=== PATIENT | female | born 1935 | race Caucasian/White ===

== ENCOUNTER 2017-12-24 12:54 | Emergency (ER) | payer MEDICARE ==
[2017-12-24 13:06] VITALS: BP 157/103
--- NOTE | 2017-12-24 14:22 | XRAY Preliminary Report ---
Exam: XR CHEST 2 VIEW X-RAY IMPRESSION: Chronic lung disease. [facility] SITE ID: [id number]
--- NOTE | 2017-12-24 14:44 | XRAY Report ---
EXAM: CHEST RADIOGRAPHY EXAM DATE: 12/24/2017 02:03 PM. CLINICAL HISTORY: Shortness of breath with exertion. Long smoking history. COMPARISON: 06/04/2009. TECHNIQUE: 2 views. FINDINGS: Lungs/Pleura: No focal opacities evident. No pleural effusion. No pneumothorax. Overexpanded. Bibasil ar fibrosis. Mediastinum: Heart and mediastinal contours are unremarkable. Other: Mild kyphoscoliosis. IMPRESSION: Chronic lung disease. [facility] Referring Provider Line: [phone] SITE ID: [id number]
[2017-12-24] MEDS ORDERED: NEOMYCIN/POLYMYX/HC OTIC DROPS EACHEAR STA (15:01)
[2017-12-24] MEDS ORDERED: AMOXICILLIN 250 MG CAPSULE PO STA (15:01)
[2017-12-24] MEDS ORDERED: predniSONE 20 MG TABLET PO STA (15:01)
--- NOTE | 2017-12-24 15:04 | ED Physician Documentation ---
History of Present Illness - Stated complaint Stated Complaint: SOA - Chief complaint Chief Complaint: General - History obtained from History obtained from: Patient - History of Present Illness Timing: Other (She has been sick for about a month that started with cough, cold , runny nose. She continues to have a nonproductive cough and shortness of breath especially at night. There is no associated pedal edema or chest pain. She still has some sinus congestion but no fevers. She is a heavy smoker and does not take any meds for COPD.) Review of Systems Constitutional: reports: Fatigue. denies: Fever, Chills, Myalgias Nose: reports: Rhinorrhea / runny nose, Congestion Throat: denies: Sore throat Cardiac: denies: Chest pain / pressure, Palpitations Respiratory: reports: Dyspnea, Cough GI: denies: Abdominal Pain PD PAST MEDICAL HISTORY - Past Medical History Cardiovascular: Hypertension - Past Surgical History Past Surgical History: Yes General: Bowel surgery - Present Medications Home Medications: Ambulatory Orders Medication Instructions Recorded Confirmed Penicillin V Potassium 500 mg PO Q6HR 10 Days tablet 03/17/16 Albuterol Sulfate [Proventil Hfa 1 - 2 puffs IH Q4H PRN #1 12/24/17 Inhaler] [email or web address] Amoxicillin 500 mg PO TID #30 capsule 12/24/17 Neomycin/Polymyx/Hc Otic Drops 4 drops OT TID #1 bottle 12/24/17 [Cortisporin Ear Susp] predniSONE [Deltasone] 40 mg PO DAILY 5 Days #10 tablet 12/24/17 - Allergies Allergies/Adverse Reactions: Allergies Allergy/AdvReac Type Severity Reaction Status Date / Time No Known Drug Allergies Allergy Verified 03/17/16 17:12 - Social History Does the pt smoke?: Yes Smoking Status: Current every day smoker PD ED PE NORMAL - Vitals Vital signs reviewed: Yes - General General: Alert and oriented X 3, No acute distress - HEENT HEENT: PERRL, EOMI, Other (She has bilateral otitis externa, right much worse than left but nonocclusive.) - Neck Neck: Supple, no meningeal sign, No bony TTP - Cardiac Cardiac: RRR, No murmur - Respiratory Respiratory: No respiratory distress, Other (Quite diminished throughout without focal findings) - Abdomen Abdomen: Normal bowel sounds, Soft, Non tender - Extremities Extremities: No edema, No calf tenderness / cord - Neuro Neuro: Alert and oriented X 3, Normal speech Results - Vitals Vitals: Vital Signs - 24 hr 12/24/17 12:57 Temperature 36.8 C Heart Rate 112 H Respiratory 22 Rate Blood Pressure 157/103 H O2 Saturation 95 Oxygen O2 Source Room air - Rads (name of study) 2v chest Radiology: EMP read contemporaneously (Chronic lung disease without focal findings.) Departure - Departure Disposition: Home, Self Care Clinical Impression: COPD exacerbation Otitis externa Qualifiers: Otitis externa type: unspecified type Chronicity: acute Laterality: bilateral Qualified Code(s): H60.503 - Unspecified acute noninfective otitis externa, bilateral Condition: Good Record reviewed to determine appropriate education?: Yes Instructions: ED COPD Flare, ED Otitis Externa Prescriptions: Albuterol Sulfate [Proventil Hfa Inhaler] 1 - 2 puffs IH Q4H PRN #1 [email or web address] PRN Reason: Cough Amoxicillin 500 mg PO TID #30 capsule Neomycin/Polymyx/Hc Otic Drops [Cortisporin Ear Susp] 4 drops OT TID #1 bottle predniSONE [Deltasone] 40 mg PO DAILY 5 Days #10 tablet Comments: Call your doctor to arrange a follow-up appointment, make the next available appointment. In the interim, return anytime if worse or if new symptoms develop. Your blood pressure was elevated today on check into the emergency department. This does not mean that you have hypertension, it is a common phenomenon to come to the emergency department and have elevated blood pressure. I recommend that you see your primary care physician within the week to have it rechecked when you are feeling better.
[2017-12-24] MEDS ORDERED: ALBUTEROL NEB 2.5 MG/3 ML INH STA (15:07)
== END 2017-12-24 16:26 | disposition home or self-care (01) ==
LOC: ED 12:54
DX: J44.1 Chronic obstructive pulmonary disease with (acute) exacerbation (principal); H60.503 Unspecified acute noninfective otitis externa, bilateral; I10 Essential (primary) hypertension; F17.200 Nicotine dependence, unspecified, uncomplicated
CPT/HCPCS: 71046; 94640; 94664; 99283; A9270; J7512

== ENCOUNTER 2019-02-17 13:33 | Outpatient (CLI) | payer MEDICARE | END 2019-02-17 13:34 | disposition critical access hospital (66) | LOC: EMS 13:33 | PROVIDERS: ATTEND Surgery | DX: M25.572 Pain in left ankle and joints of left foot (principal); W19.XXXA Unspecified fall, initial encounter; Y92.002 Bathroom of unspecified non-institutional (private) residence as the place of occurrence of the external cause | CPT/HCPCS: A0425; A0429 ==

== ENCOUNTER 2019-02-17 13:47 | Inpatient (IN) | payer MEDICARE ==
--- NOTE | 2019-02-17 14:00 | ED Physician Documentation ---
PD HPI FOCAL NEURO - Stated complaint Stated Complaint: GLF - Chief complaint Chief Complaint: Neuro - History obtained from History obtained from: Patient, EMS, Caregiver - History of Present Illness Timing - onset: Other (83-year-old woman who lives alone with visiting caregiver. She was feeling poorly yesterday but she is really unable to elaborate on that. This morning at 5 AM reportedly fell in her bathroom. Its unclear if it was a syncopal episode, she says she does not think so. She injured her arm and her ankle on the left. She may have hit her head. She is a very vague historian. It is noted that she is weak on the left side. Is unclear when this started. She has no history of stroke but does smoke heavily.) Review of Systems Ten Systems: 10 systems reviewed and negative Constitutional: denies: Fever, Chills Cardiac: denies: Chest pain / pressure, Palpitations Respiratory: denies: Dyspnea, Cough PD PAST MEDICAL HISTORY - Past Medical History Cardiovascular: Hypertension - Past Surgical History Past Surgical History: Yes General: Bowel surgery - Present Medications Home Medications: Ambulatory Orders Medication Instructions Recorded Confirmed Penicillin V Potassium 500 mg PO Q6HR 10 Days tablet 03/17/16 Albuterol Sulfate [Proventil Hfa 1 - 2 puffs IH Q4H PRN #1 12/24/17 Inhaler] [email or web address] Amoxicillin 500 mg PO TID #30 capsule 12/24/17 Neomycin/Polymyx/Hc Otic Drops 4 drops OT TID #1 bottle 12/24/17 [Cortisporin Ear Susp] predniSONE [Deltasone] 40 mg PO DAILY 5 Days #10 tablet 12/24/17 - Allergies Allergies/Adverse Reactions: Allergies Allergy/AdvReac Type Severity Reaction Status Date / Time No Known Drug Allergies Allergy Verified 02/17/19 13:55 - Social History Does the pt smoke?: Yes Smoking Status: Current every day smoker Does the pt have substance abuse?: No PD ED PE NORMAL - Vitals Vital signs reviewed: Yes - General General: No acute distress, Other (She is alert and oriented to person and place but not time and a poor historian for events.) - HEENT HEENT: PERRL, EOMI - Neck Neck: Supple, no meningeal sign, No bony TTP - Cardiac Cardiac: RRR, No murmur - Respiratory Respiratory: No respiratory distress, Clear bilaterally - Abdomen Abdomen: Soft, Non tender - Extremities Extremities: Other (Mild tenderness of the left clavicle. No clear tenderness of the left arm or leg but given her neurologic examination it is questionable if her sensation is completely intact there.) - Neuro Neuro: Normal speech Eye Opening: Spontaneous Motor: Obeys Commands Verbal: Confused GCS Score: 14 NIHSS - Time Time: 13:55 - Level of Consciousness Level of consciousness: (0) Alert, Keenly responsive LOC Questions: (1) Answers one Q correctly (Initially she says it October or November but then settles on January but does not know the year.) LOC Commands: (0) Performs both correctly - Gaze Best Gaze: (0) Normal - Visual Visual: (0) No loss - Facial Palsy Facial Palsy: (2) Partial paralysis (Left face) - Motor Arms (both separate) Motor Arm (right): (0) No drift Motor Arm (left): (2) Some effort against gravity - Motor Legs (both separate) Motor Leg (right): (0) No drift Motor Leg (left): (2) Some effort against gravity - Limb Ataxia Limb Ataxia: (0) Absent - Sensory Sensory: (0) Normal - Best Language Best Language: (0) No aphasia - Dysarthria Dysarthria: (1) [id number] dysarthria - Extinction and Inattention (formally neg Extinction and inattention: (0) No abnormality - Total Score/Results Total Score/Result: 8 Results - Vitals Vitals: Vital Signs - 24 hr 02/17/19 02/17/19 13:52 16:12 Temperature 36.2 C L Heart Rate 91 89 Respiratory 19 18 Rate Blood Pressure 183/67 H 105/87 H O2 Saturation 96 96 Oxygen O2 Source Room air - EKG (time done) 1410 Rate: Rate (enter#) (79) Rhythm: Other (Some artifact, but looks like sinus rhythm with short SC interval, some PACs and diffusely flat T waves. No priors available for comparison.) - Labs Labs: Laboratory Tests 02/17/19 02/17/19 02/17/19 14:00 14:00 14:00 WBC 12.5 H RBC 4.66 Hgb 13.6 Hct 40.5 MCV 86.9 MCH 29.2 MCHC 33.6 RDW 13.5 Plt Count 312 MPV 10.7 Neut # (Auto) 9.4 H Lymph # (Auto) 2.1 Crook # (Auto) 0.9 Eos # (Auto) 0.0 Baso # (Auto) 0.1 Absolute Nucleated RBC 0.00 Nucleated RBC % 0.0 PT 12.3 INR 1.1 Sodium 141 Potassium 3.9 Chloride 100 L Carbon Dioxide 24 Anion Gap 17.0 H BUN 18 Creatinine 0.6 Estimated GFR (MDRD) 95 Glucose 76 Calcium 10.0 Total Bilirubin 1.3 H AST 29 ALT 13 Alkaline Phosphatase 83 Total Protein 7.4 Albumin 4.4 Globulin 3.0 Albumin/Globulin Ratio 1.5 Lipase 20 L - Rads (name of study) CTA Head/neck Radiology: EMP read contemporaneously (Old right basal ganglia lacunar infarct and age-related disease. She has no intracranial stenosis but she has multiple areas of carotid stenosis including severe right proximal cervical atherosclerosis.) X-rays of the left clavicle, humerus, forearm, ankle, and hip Radiology: EMP read contemporaneously (All negative) PD MEDICAL DECISION MAKING - ED course ED course: 83-year-old woman presents by ambulance. She was feeling poorly yesterday and fell this morning. Her examination is concerning for a stroke with left-sided findings, the acuity of this is unclear but probably started yesterday, as such TPA is not offered. Case was discussed after CT angiography with Dr. Denton at [facility], the carotid does need to be addressed by vascular surgeon but not acutely since she has completed her stroke apparently. She recommends starting aspirin and otherwise routine stroke care. She can follow-up with vascular surgery in a delayed fashion. Spoke with Dr. Retana for admission at 4:32 PM. Of note the patient asked me to call her daughter unfortunately she did not know the phone number and it was not listed. Departure - Departure Disposition: 66 [facility] DC/Xfer Clinical Impression: Carotid stenosis, right, Multiple contusions Cerebrovascular accident (CVA) Qualifiers: CVA mechanism: unspecified Qualified Code(s): I63.9 - Cerebral infarction, unspecified Condition: Serious
[2019-02-17 14:08] LABS: BASOPHILS # (AUTO) 0.1 10^3/uL (0.0-0.1); BASOPHILS % (AUTO) 0.5 %; EOSINOPHILS % (AUTO) 0.1 %; HGB - HEMOGLOBIN 13.6 g/dL (12.0-16.0); LYMPHOCYTES # (AUTO) 2.1 10^3/uL (1.5-3.5); LYMPHOCYTES % (AUTO) 16.6 %; MEAN CORPUSCULAR HEMOGLOBIN 29.2 pg (27.0-31.0); MEAN CORPUSCULAR HGB CONC 33.6 g/dL (32.0-36.0); MEAN CORPUSCULAR VOLUME 86.9 fL (81.0-99.0); MEAN PLATELET VOLUME 10.7 fL (7.9-10.8); MONOCYTES # (AUTO) 0.9 10^3/uL (0.0-1.0); MONOCYTES % (AUTO) 7.2 %; NEUTROPHILS # (AUTO) 9.4 10^3/uL (1.5-6.6); NEUTROPHILS % (AUTO) 75.2 %; PLT - PLATELET COUNT 312 10^3/uL (130-450); RED BLOOD COUNT 4.66 10^6/uL (4.20-5.40); RED CELL DISTRIBUTION WIDTH 13.5 % (12.0-15.0); WHITE BLOOD COUNT 12.5 x10^3/uL (4.8-10.8)
[2019-02-17] MEDS ORDERED: IOVERSOL 320 100 ML VIAL IVP ONE (14:10)
[2019-02-17 14:15] LABS: INR 1.1 (0.8-1.2); PT - PROTHROMBIN TIME 12.3 secs (9.9-12.6)
[2019-02-17 14:24] LABS: ALBUMIN 4.4 g/dL (3.2-5.5); ALBUMIN/GLOBULIN RATIO 1.5 (1.0-2.2); BILIRUBIN,TOTAL 1.3 mg/dL (0.2-1.0); CREATININE 0.6 mg/dL (0.4-1.0); TOTAL PROTEIN 7.4 g/dL (6.7-8.2)
--- NOTE | 2019-02-17 15:35 | XRAY Report ---
Reason: arm inj Procedure Date: 02/17/2019 Accession Number: [id number] / [id number] Procedure: XR - Humerus LT CPT Code: FULL RESULT: EXAM: LEFT HUMERUS RADIOGRAPHY EXAM DATE: 02/17/2019 03:11 PM. CLINICAL HISTORY: Left arm injury. Left humerus pain after multiple falls over 2 days. COMPARISON: None. TECHNIQUE: 2 views. FINDINGS: Bones: Normal. No fractures or bone lesions. Joints: Normal. No effusions or subluxations in the visualized shoulder or elbow joints. Soft Tissues: Normal. No soft tissue swelling. IMPRESSION: Normal humerus radiography. [facility]
--- NOTE | 2019-02-17 15:36 | XRAY Report ---
Reason: shoulder inj Procedure Date: 02/17/2019 Accession Number: [id number] / [id number] Procedure: XR - Clavicle LT CPT Code: FULL RESULT: EXAM: LEFT CLAVICLE RADIOGRAPHY EXAM DATE: 02/17/2019 03:12 PM. CLINICAL HISTORY: Left shoulder injury. Left clavicle pain after multiple falls over 2 days. COMPARISON: CHEST 2 VIEW 12/24/2017 1:53 PM. TECHNIQUE: 2 views. FINDINGS: Bones: Normal. No fracture or bone lesion. Joints: The acromioclavicular and sternoclavicular joints are normally aligned. No subluxation. Cannot exclude mild left glenohumeral joint space narrowing from degenerative change. Soft Tissues: Normal. No soft tissue swelling. IMPRESSION: No fracture evident. [facility]
--- NOTE | 2019-02-17 15:38 | XRAY Report ---
Reason: arm inj Procedure Date: 02/17/2019 Accession Number: [id number] / [id number] Procedure: XR - Forearm LT CPT Code: FULL RESULT: EXAM: LEFT FOREARM RADIOGRAPHY EXAM DATE: 02/17/2019 03:12 PM. CLINICAL HISTORY: Arm injury. Left forearm pain after multiple falls over 2 days. COMPARISON: None. TECHNIQUE: 2 views. FINDINGS: Bones: Normal. No fractures or bone lesions. Joints: Potential ulnar positive variance. Wrist evaluation can be limited by standard forearm film positioning. Elbow joint is grossly unremarkable. Soft Tissues: Normal. No soft tissue swelling. IMPRESSION: No fracture evident. [facility]
--- NOTE | 2019-02-17 15:40 | XRAY Report ---
Reason: ankle inj fall Procedure Date: 02/17/2019 Accession Number: [id number] / [id number] Procedure: XR - Ankle 3 View LT CPT Code: FULL RESULT: EXAM: LEFT ANKLE RADIOGRAPHY EXAM DATE: 02/17/2019 03:11 PM. CLINICAL HISTORY: Left ankle pain after multiple falls over 2 days. Ankle injury. COMPARISON: None. TECHNIQUE: 3 views. A small portion of posterior calcaneus and adjacent soft tissues were coned off of the lateral film. FINDINGS: Bones: Normal. No fractures or bone lesions. Joints: Normal. No effusion. No subluxations. The ankle mortise is normally aligned. Soft Tissues: Calcaneal enthesophytes. IMPRESSION: 1. No fracture evident. A small portion of posterior calcaneus and adjacent soft tissues were coned off of crosstable lateral film. Consider repeating this view if clinically warranted. [facility]
--- NOTE | 2019-02-17 15:43 | XRAY Report ---
Reason: hip inj Procedure Date: 02/17/2019 Accession Number: [id number] / [id number] Procedure: XR - Hip w/Pelvis 2-3V LT CPT Code: FULL RESULT: EXAM: LEFT HIP RADIOGRAPHY EXAM DATE: 02/17/2019 03:11 PM. CLINICAL HISTORY: Left hip pain after multiple falls over 2 days. Hip injury. COMPARISON: Pelvic CT 02/22/2012. TECHNIQUE: 2 views. AP and crosstable lateral views. FINDINGS: Bones: Normal. No fractures or bone lesion. Joints: Normal. No dislocation. The hip joint space is preserved. Soft Tissues: Calcified fibroid within medial left hemipelvis. IMPRESSION: 1. No radiographic evidence for left hip fracture. No dislocation. If there is persistent clinical concern, consider MRI. [facility]
--- NOTE | 2019-02-17 16:02 | CT Report ---
Reason: L sided facial droop, L neck pain Procedure Date: 02/17/2019 Accession Number: [id number] / [id number] Procedure: CT - ANGIO NECK W CPT Code: FULL RESULT: EXAM: CT ANGIOGRAM HEAD AND NECK. CT SCAN HEAD WITHOUT AND WITH CONTRAST. EXAM DATE: 02/17/2019 03:18 PM. CLINICAL HISTORY: 83-year-old female. L sided facial droop. COMPARISON: NECK ANGIO 02/17/2019 3:10 PM. TECHNIQUE: Routine axial helical CTA imaging was performed from the aortic arch through the [place]. Routine axial CT imaging of the head was performed prior to and following contrast administration. Reconstructions: Routine multiplanar 3D MIP reconstructions. IV contrast: 80 cc Optiray 320. NASCET Criteria are used for stenosis measurements. In accordance with CT protocol optimization, one or more of the following dose reduction techniques were utilized for this exam: automated exposure control, adjustment of mA and/or KV based on patient size, or use of iterative reconstructive technique. FINDINGS: CT SCAN HEAD: Parenchyma: No intraparenchymal hemorrhage. No evidence of mass, midline shift, or CT findings of acute infarction. Carcamo-white differentiation is distinct. Scattered periventricular and deep white matter hypodensities, nonspecific, favored to represent sequela of chronic microangiopathy. Chronic lacunar infarct right basal ganglia. Extra-axial Spaces: Normal for age. No subdural or epidural collections identified. Ventricles: Normal in size and position. Sinuses and Orbits: Status post bilateral lens replacement surgery. Imaged paranasal sinuses, orbits, and mastoids show no significant abnormality. Bones: No evidence of fracture or calvarial defect. CT ANGIOGRAM EXTRACRANIAL CIRCULATION: Mild atherosclerosis aortic arch, no hemodynamically significant narrowing. Great vessels are patent and unremarkable. Right Carotid: Moderate to severe atherosclerosis right carotid bifurcation and proximal cervical right ICA, maximal narrowing of 70-75%, severe by NASCET criteria . The common carotid, internal carotid, and external carotid arteries are patent. No evidence of acute dissection. Approximately 50-60% narrowing origin of the right external carotid artery. Left Carotid: Moderate to severe atherosclerosis left carotid bifurcation and proximal cervical left ICA, maximal narrowing 70-75 %, severe by NASCET criteria. The common carotid, internal carotid, and external carotid arteries are patent. No evidence of acute dissection. Approximately 50-60% narrowing origin of the left external carotid artery Vertebrals: Atherosclerosis origin of the right vertebral artery, maximal narrowing 30-40%. Atherosclerosis with approximately 40-50% narrowing origin of the left vertebral artery. The vertebrobasilar system is otherwise unremarkable. CT ANGIOGRAM INTRACRANIAL CIRCULATION: RIGHT: Internal Carotid artery: Moderate atherosclerosis right carotid siphon, maximal narrowing 60-70%. Anterior Cerebral Artery: Patent without significant stenosis, aneurysm, or vascular malformation. Middle Cerebral Artery: Patent without significant stenosis, aneurysm, or vascular malformation. Posterior Cerebral Artery: Patent without significant stenosis, aneurysm, or vascular malformation. Posterior Communicating Artery: Patent without significant stenosis, aneurysm, or vascular malformation. LEFT: Internal Carotid artery: Moderate atherosclerosis left carotid siphon, maximal narrowing 60-70%. Anterior Cerebral Artery: Patent without significant stenosis, aneurysm, or vascular malformation. Middle Cerebral Artery: Patent without significant stenosis, aneurysm, or vascular malformation. Posterior Cerebral Artery: Patent without significant stenosis, aneurysm, or vascular malformation. 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 CENTRAL: Anterior Communicating Artery: Patent. No aneurysm. The dural venous sinuses are patent. Other: Mild to moderate multilevel degenerative spondylosis. No acute fracture or malalignment. The visualized lung apices are clear. Sialoliths within the submandibular glands bilaterally. The visualized soft tissues demonstrate no acute abnormality. IMPRESSION: CT HEAD: 1. No evidence of acute intracranial abnormality on the noncontrast CT head. Specifically, no evidence of acute infarct, intracranial hemorrhage, mass effect, midline shift, or hydrocephalus. 2. No abnormal enhancement on the postcontrast CT head. 3. Scattered periventricular and deep white matter hypodensities, nonspecific, favored to represent sequela of chronic microangiopathy. Chronic lacunar infarct right basal ganglia. CTA NECK: 1. Moderate to severe atherosclerosis right carotid bifurcation and proximal cervical right ICA, maximal narrowing of 70-75%, severe by NASCET criteria . 2. Approximately 50-60% narrowing origin of the right external carotid artery. 3. Moderate to severe atherosclerosis left carotid bifurcation and proximal cervical left ICA, maximal narrowing 70-75 %, severe by NASCET criteria. 4. Approximately 50-60% narrowing origin of the left external carotid artery 5. Atherosclerosis origin of the right vertebral artery, maximal narrowing 30-40%. 6. Atherosclerosis with approximately 40-50% narrowing origin of the left vertebral artery. CTA HEAD: 1. Moderate atherosclerosis right carotid siphon, maximal narrowing 60-70%. 2. Moderate atherosclerosis left carotid siphon, maximal narrowing 60-70%. [facility]
[2019-02-17] MEDS ORDERED: ASPIRIN CHEW 81 MG TABLET PO STA (16:14)
[2019-02-17] MEDS ORDERED: ACETAMINOPHEN 325 MG TABLET PO PRN (16:41)
[2019-02-17] MEDS ORDERED: ONDANSETRON ODT 4 MG TABLET TL PRN (16:41)
[2019-02-17] MEDS ORDERED: ALBUTEROL NEB 2.5 MG/3 ML INH PRN (16:44)
--- NOTE | 2019-02-17 17:04 | HISTORY & PHYSICAL EXAMINATION ---
Chief Complaint - Chief Complaint Chief Complaint: unwitnessed fall heard by care provider at 5am History of Present Illness - Admitted From Admitted From:: home - History Obtained From Records Reviewed: from ED. - History of Present Illness HPI Comment/Other: 83 yo female who lives alone but has a visiting farm or ranch animal caretaker BJ who is a friend of her daughters only as of early this week. Dietetic Assistant heard patient fall in bathroom ~ 5am this morning and found her on the floor. (Patient reports she fell twice, but cant elaborate when the other time was; BJ not present. ) Rosi johnson does not recall details, but sustained injuries to L arm andL ankle. On evaluation in the ED L sided weakness was noted. On neuro exam rin the ED in addition to the L sided weakness she was alert, with normal speech noted on iniitail GCS scoring in ED, but dysarthira mild to mod noted on the exam. , although she was not entirely oriented to time/date/. There was a facial drrop, no pronator drift, 3/5 weakness on the LUE and LLE, no asphasia, . Imaging in the ED (initial so far as CT) showed old lacunar infarcts but no acute stroke (at this time). MRI not yet done. EKG ; NSR wit short Pr, PACs and diffusely flat T waves with no comparison EKG available RE stroke risk factors, Patient is heavy smoker + HTN, neg DM , no note of prior hyperlipidemia; not on statin VS on presentaton afeb, HR 91, 183/67 RR 19 96-97% RA Dr Gale spoke with Dr Denton at [employer] stroke; and as the timing of the acute event is very unclear; was not TPA candidate. CTA of head and neck showed significant carotid stenosis (although no intracranial stenosis) ; most significantly severe R proximal cervical atheroscerosis. Dr Denton (per Gus note) indicated carotid does need to be addressed w/ vascular surgery but NOT acutely as stroke is complete . Advised starting ASA and routien post stroke care, with vascular surgeon follow up. Re fall at home; Xrays of left clavicle, humerus, forearm, ankle and hip all negative for acute orthopedic injury History - Past Medical History Cardiovascular: reports: Hypertension (patient denies on H/P and denies being on any meds) Respiratory: reports: Other (once had an inhaler, no dx of COPD, no bronchodilator) Neuro: reports: None Endocrine/Autoimmune: reports: None GI: reports: Other (colostomy; unclear what pathology was resulting in this) [employer] SCIENCES DEAN: reports: Other (5 children) : reports: None HEENT: reports: None Psych: reports: None Musculoskeletal: reports: None MRSA Hx?: No - Past Surgical History General: reports: Bowel surgery - Family & Social History Family History Comment/Other: Has 3 daughters and 2 sons, Daughter Lea parker in [facility], Charissa (also daughter) From [place] originally Living arrangement: At home Living Situation: With caregiver(s) Social History Notes: llives alone, BJ is daughers friend, helping her since early this week (patient vague on when she is there - Substance History Use: Uses substance without health or social issues: Tobacco (1 pack last 2-3 days now (vague on this ) since early ), Alcohol (no ETOH) Meds/Allgy - Home Medications Home Medications: Ambulatory Orders Medication Instructions Recorded Confirmed Albuterol Sulfate [Proventil Hfa 1 - 2 puffs IH Q4H PRN #1 12/24/17 02/18/19 Inhaler] hfa.aer.[email or web address] - Allergies Allergies/Adverse Reactions: Allergies Allergy/AdvReac Type Severity Reaction Status Date / Time No Known Drug Allergies Allergy Verified 02/17/19 13:55 Review of Systems - Constitutional Constitutional: denies: Fatigue, Poor appetite, Weight gain, Weight loss - Eyes Eyes: denies: Field loss, Vision loss, Dipolpia - Ears, Nose & Throat Ears, Nose & Throat: reports: Other (edentulous). denies: Hearing loss, Hearing aids - Cardiovascular Cariovascular: denies: Irregular heart rate - Respiratory Respiratory: reports: Other (smokes still 1 pack every 2-3 days). denies: Cough, Sputum production, Wheezing - Gastrointestinal Gastrointestinal: reports: Other (has LLQ colostomy, doesnt recall last stool, ? in lst 2-3 days per her). denies: Abdominal pain, Abdominal distention, Constipation, Nausea, Vomiting - Genitourinary Genitourinary: denies: Dysuria, Frequency, Urgency, Flank pain - Neurological Neurological: reports: Other (no deficits prior to todays presentation). denies: General weakness Prior Level of Functionality: Patient was up and about in her house Denied using assistive device when home Exam - Vital Signs Reviewed Vital Signs: Yes Vital Signs: Vital Signs x48h Temp Pulse Resp BP Pulse Ox 02/17/19 16:12 89 18 105/87 H 96 02/17/19 13:52 36.2 C L 91 19 183/67 H 96 - Physical Exam General Appearance: positive: Other (Withered, wrinkled elderly female lying in bed in no acute distress, but during hisotry started coughing not handling secretions, needed to be positioned upright, visible L facial droop, mildly dysarthric but answers questions mostly easily understood (not very detail oriented in response to questions re: history) Oriented) Eyes Bilateral: positive: PERRL, EOMI (no clear field deficit on left on exam when peripheral vision checked senile arcus bilatrally) ENT: positive: Other (drooling, HOB elevated while I was in room, not handling secretions well,edentulous) Neck: positive: Nml inspection, No JVD, Other (tongue deviates slightly on exam). negative: Carotid bruit Respiratory: positive: Chest non-tender. negative: No respiratory distress, Breath sounds nml (Unlabored resps at rest, Distant breath sounds in bases, but moves air, no rhonchi or crackles currently. Early into hx interview started coughing, difficulty handling secretions ,better w/ HOB elevated) Cardiovascular: positive: Regular rate & rhythm, No murmur. negative: Systolic murmur Peripheral Pulses: positive: 1+ Abdomen: positive: Nml bowel sounds (but hypoactive, abd flat, nondistended, LLQ ostomy with no stool or air in beag). negative: No organomegaly Back: negative: CVA tenderness (R), CVA tenderness (L) Skin: positive: Warm, Dry, Other (very tanned skin, wrinkled face). negative: Diaphoresis, Pallor Extremities: positive: Other. negative: Pedal edema Neurologic/Psychiatric: positive: Oriented x3, Mood/affect nml, Other (mildly dysarthric but making sense, mild word slurring, drooling, not handling secretions, CN 2-12 intact, does not clearly have a field deficit on left, will turn head to look left, Flaccid LLE, Has slight shoulder shrug on left, sl proximal LLE strength,otherwise marked left hemiplegia) Conclusion/Plan - Problem List (1) Stroke Conclusion/Plan: gerardo completed acute stroke with severe carotid stenosis as cause in 83 yo female with stroke risks of Htn and tobacco use CT does not yet show stroke (< 24 hrs) -MRI pending (will defer this evening given her difficulty handling secretions/wont tolerate flatlying) -Start ASA (got 325 in ED, 81 mg starting in am) -Add high intensity statin -lipid panel in am - Echo Pending Permissive HTN, IVF over night -As per neuro rec; will need outpatient vascular surgeon consult -PT/OT eval -Aspiration precautions -VTE prophylaxis ; lovenox (2) Carotid stenosis, bilateral Conclusion/Plan: will need outpatient vascular surgeon consult Start ASA as per neurology recs Imperitive that patient stop tobacco (3) DNR (do not resuscitate) Conclusion/Plan: Patient confirmed she would not want resuscitation in event of cardiopulmonary arrest (4) Tobacco use Conclusion/Plan: will add low dose nicoderm to avoid nicotine withdrawal PRN bronchodilator (5) Hypertension Conclusion/Plan: Reported as outpatient Dx, not on meds Permissive HTN next 48-96 hrs and even giving fluid this pm Will reeval - Lab Results Lab results reviewed: Yes Fish Bones: 02/18/19 04:40 02/18/19 04:40 Other Lab Results: Note; note completed on 02/18; 02/18 labs populated the lab section on 02/17; unremarkable BNP Na 131, K 3.9, Cl 100, C02 24, BUN 18 Cr 0.6 Glucose 76. 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 Chronic lacunar infarct R basal ganglia. CTA extracranial Mod to severe atherosclerosis r carotid 70-75%, No disection 50-60% narrowing R external carotid Left carotid; moderate to severe atherosclerosis left carotid bifurcation maximal narrowing 70-75% ; severe by NASCET criteria; ~ 40-50% narrowing of left vertebral artery CTA brain detail; Right Internal carotid; moderate atherosclerosis 60-70% Left internal carotid; moderate atherosclerosis 60-70%
[2019-02-17] MEDS ORDERED: IPRATROPIUM/ALBUTEROL 3 ML NEB INH PRN (17:31)
[2019-02-17] MEDS: SODIUM CHLORIDE FLUSH 0.9% 10 ML SYRINGE IVP SCH (18:36)
[2019-02-17] MEDS: SODIUM CHLORIDE 0.9% 1,000 ML IV SCH (18:36)
[2019-02-17] MEDS: ATORVASTATIN 40 MG TABLET PO SCH (22:12)
[2019-02-17] MEDS: NYSTATIN CREAM 15 GM TUBE TOP SCH (22:20)
[2019-02-18] MEDS: SODIUM CHLORIDE 0.9% 1,000 ML IV SCH (04:33)
[2019-02-18] MEDS: SODIUM CHLORIDE FLUSH 0.9% 10 ML SYRINGE IVP SCH ×3 (04:36→20:01)
[2019-02-18 05:04] LABS: HGB - HEMOGLOBIN 12.4 g/dL (12.0-16.0); MEAN CORPUSCULAR HEMOGLOBIN 29.5 pg (27.0-31.0); MEAN CORPUSCULAR HGB CONC 33.5 g/dL (32.0-36.0); MEAN CORPUSCULAR VOLUME 87.9 fL (81.0-99.0); MEAN PLATELET VOLUME 11.5 fL (7.9-10.8); RED BLOOD COUNT 4.21 10^6/uL (4.20-5.40); RED CELL DISTRIBUTION WIDTH 13.9 % (12.0-15.0); WHITE BLOOD COUNT 10.2 x10^3/uL (4.8-10.8)
[2019-02-18 05:53] LABS: BUN - BLOOD UREA NITROGEN 19 mg/dL (6-20); CALCIUM 9.1 mg/dL (8.5-10.3); CARBON DIOXIDE - CO2 21 mmol/L (21-32); CHLORIDE 106 mmol/L (101-111); CHOL/HDL RATIO 3.1 (<4.4); CHOLESTEROL 174 mg/dL; CREATININE 0.5 mg/dL (0.4-1.0); GFR - MDRD 118 (>89); HDL CHOLESTEROL 56 mg/dL; LDL CHOLESTEROL,CALCULATED 93 mg/dL; LDL/HDL RATIO 1.7 (<4.4); SODIUM 143 mmol/L (135-145); VLDL CHOLESTEROL 25 mg/dL
[2019-02-18 05:55] LABS: GLUCOSE 48 mg/dL (70-100)
[2019-02-18] MEDS ORDERED: DEXTROSE 50% ABBOJECT 25 GM/50 ML SYRINGE ONE (06:10)
[2019-02-18] MEDS ORDERED: DEXTROSE 50% ABBOJECT 25 GM/50 ML SYRINGE IVP ONE (06:20)
[2019-02-18] MEDS ORDERED: DEXTROSE 5% 1,000 ML IV SCH (07:00)
[2019-02-18] MEDS ORDERED: ASPIRIN EC 81 MG TABLET PO SCH (09:00)
[2019-02-18] MEDS: NICOTINE 7 MG PATCH TOP SCH (09:20)
[2019-02-18] MEDS: POLYETHYLENE GLYCOL 3350 17 GM PACKET PO SCH (09:21)
[2019-02-18] MEDS: ENOXAPARIN 40 MG/0.4 ML SYRINGE SUBQ SCH (09:21)
[2019-02-18] MEDS: NYSTATIN CREAM 15 GM TUBE TOP SCH ×2 (10:34→20:01)
[2019-02-18] MEDS: ASPIRIN 300 MG SUPP PR SCH (10:34)
[2019-02-18] MEDS ORDERED: DEXTROSE 5%-0.9% NACL 1,000 ML IV SCH (11:00)
--- NOTE | 2019-02-18 11:42 | PROVIDER PROGRESS NOTE ---
Subjective - Prog Note Date Prog Note Date: 02/18/19 Prog Note Time: 08:00 (seen early this morning) - Subjective Subjective: Spoke with Daughter parminder, and Paul, grandson POA Patient knows she had a stroke, denies, pain, denies SOB, very aware of drooling Patient aware of swallow eval, hopefully swallow will improve, aware PEG vs NG feed might be temporarily recommended Current Medications - Current Medications Current Medications: Active Medications Acetaminophen (Tylenol) 650 mg PO Q4HR PRN PRN Reason: Pain 1 to 4 Albuterol () 2.5 mg INH RTQ4H PRN PRN Reason: Wheezing Albuterol/Ipratropium (Duoneb) 3 ml INH Q4HR PRN PRN Reason: Wheezing Aspirin () 300 mg TX DAILY [facility] Last Admin: 02/18/19 10:34 Dose: 300 mg Atorvastatin Calcium (Lipitor) 40 mg PO QPM [facility] Last Admin: 02/17/19 22:12 Dose: Not Given Enoxaparin Sodium (Lovenox) 40 mg SUBQ DAILY [facility] Last Admin: 02/18/19 09:21 Dose: 40 mg Acetaminophen (Ofirmev) 100 mls @ 400 mls/hr IV Q6HR PRN PRN Reason: PAIN Dextrose/Sodium Chloride (D5ns) 1,000 mls @ 50 mls/hr IV .Q20H [facility] Last Admin: 02/18/19 10:26 Dose: 50 mls/hr Multi-Ingredient Ointment (Zinc Oxide) 1 applic TOP PRN PRN PRN Reason: Skin Care Nicotine (Nicoderm) 1 patch TOP DAILY [facility] Last Admin: 02/18/19 09:20 Dose: 1 patch Nystatin (Mycostatin Cream) 1 applic TOP BID [facility] Last Admin: 02/18/19 10:34 Dose: 1 applic Ondansetron HCl (Zofran Inj) 4 mg IVP Q6HR PRN PRN Reason: Nausea / Vomiting Ondansetron HCl (Zofran Odt) 4 mg TL Q6HR PRN PRN Reason: Nausea / Vomiting Polyethylene Glycol (Miralax) 17 gm PO DAILY [facility] Last Admin: 02/18/19 09:21 Dose: Not Given Sodium Chloride (Normal Saline Flush 0.9%) 10 ml IVP PRN PRN PRN Reason: NEEDED PER PROVIDER ORDERS Sodium Chloride (Normal Saline Flush 0.9%) 10 ml IVP 0100,0900,1700 ERIC Last Admin: 02/18/19 09:21 Dose: Not Given Objective - Vital Signs/Intake & Output Reviewed Vital Signs: Yes Vital Signs: BP 139/40, 167/61, 170/70 Vital Signs x48h Temp Pulse Pulse Resp BP BP Pulse Ox 02/18/19 11:36 76 170/70 H 02/18/19 07:51 36.4 C L 68 22 167/61 H 96 02/18/19 05:19 36.3 C L 68 16 93 02/18/19 03:57 36.3 C L 68 16 139/40 H 93 Intake & Output: Intake & Output 02/15/19 02/16/19 02/17/19 02/18/19 23:59 23:59 23:59 23:59 Intake Total 2000 Output Total 450 Balance 1550 - Objective General Appearance: positive: Other (Withered, wrinkled elderly female, in bed with HOB ~ 45 degrees, awake, alert, R preference (but can turn head left), fairly constant drooling of saliva, occas cough, 96% RA sa02 Of note when seen later / early evening the drooling was much less pronounced awake, alert, communicative) Eyes Bilateral: positive: PERRL, EOMI (bilateral senile arcus, do not appreciate a left field deficit) ENT: positive: Other (edentulous, drooling as above, not handling secretions) Neck: positive: Other (no carotid bruit appreciable). negative: Carotid bruit ((despite extensive carotid stenosis on imaging)) Respiratory: positive: Other (Unlabored resps, but occas cough, drooling as above, Sa02 on RA 96%, Iniitally on posterior exam had occas expiratory wheeze, but cleared during auscultation, somewhat distant breath sounds) Cardiovascular: positive: Regular rate & rhythm, No murmur (somewhat distant heart sounds) Abdomen: positive: No organomegaly, Nml bowel sounds (Active but hypoactive), No distention, Other (LLQ ostomy, no stool or air in bag currently). negative: Tenderness Skin: positive: Warm, Dry, Other (tanned skin, no breakdown) Extremities: positive: Nml appearance. negative: Pedal edema Neurologic/Psychiatric: positive: Oriented x3 (Not entirely clear on time,Responds to questions appropriately, slight dysarthria, hard of hearing knows she had stroke, L facial droop, CN 2-12 intact, EOMI, no nystagmus,pupils equal, dont appreciate left field deficit, Can puff cheeks, push tongue to left, + shoulder shrug, perhaps sl L tongue deviation; Strenght; very slight shoulder shrug on left, Flaccid LUE and LLE otherwise. Full strength right side Drooling as noted. Did not test rapid alternating movements) - Lab Results Fish Bones: 02/18/19 04:40 02/18/19 04:40 Other Labs: Lab Results x24hrs 02/18/19 02/18/19 02/17/19 Range/Units 04:40 04:40 14:00 WBC 10.2 (4.8-10.8) x10^3/uL RBC 4.21 (4.20-5.40) 10^6/uL Hgb 12.4 (12.0-16.0) g/dL Hct 37.0 (37.0-47.0) % MCV 87.9 (81.0-99.0) fL MCH 29.5 (27.0-31.0) pg MCHC 33.5 (32.0-36.0) g/dL RDW 13.9 (12.0-15.0) % Plt Count 273 (130-450) 10^3/uL MPV 11.5 H (7.9-10.8) fL Neut # (Auto) (1.5-6.6) 10^3/uL Lymph # (Auto) (1.5-3.5) 10^3/uL [place] # (Auto) (0.0-1.0) 10^3/uL Eos # (Auto) (0.0-0.7) 10^3/uL Baso # (Auto) (0.0-0.1) 10^3/uL Absolute Nucleated RBC x10^3/uL Nucleated RBC % /100WBC PT (9.9-12.6) secs INR (0.8-1.2) Sodium 143 141 (135-145) mmol/L Potassium 3.5 3.9 (3.5-5.0) mmol/L Chloride 106 100 L (101-111) mmol/L Carbon Dioxide 21 24 (21-32) mmol/L Anion Gap 16.0 H 17.0 H (6-13) BUN 19 18 (6-20) mg/dL Creatinine 0.5 0.6 (0.4-1.0) mg/dL Estimated GFR (MDRD) 118 95 (>89) Glucose 48 L* 76 (70-100) mg/dL Calcium 9.1 10.0 (8.5-10.3) mg/dL Total Bilirubin 1.3 H (0.2-1.0) mg/dL AST 29 (10-42) IU/L ALT 13 (10-60) IU/L Alkaline Phosphatase 83 (42-121) IU/L Total Protein 7.4 (6.7-8.2) g/dL Albumin 4.4 (3.2-5.5) g/dL Globulin 3.0 (2.1-4.2) g/dL Albumin/Globulin Ratio 1.5 (1.0-2.2) Triglycerides 124 ( - 149) mg/dL Cholesterol 174 ( - 199) mg/dL LDL Cholesterol, Calc 93 ( - 129) mg/dL VLDL Cholesterol 25 mg/dL HDL Cholesterol 56 L (60 - ) mg/dL LDL/HDL Ratio 1.7 (<4.4) Cholesterol/HDL Ratio 3.1 (<4.4) Lipase 20 L (22-51) U/L 02/17/19 02/17/19 Range/Units 14:00 14:00 WBC 12.5 H (4.8-10.8) x10^3/uL RBC 4.66 (4.20-5.40) 10^6/uL Hgb 13.6 (12.0-16.0) g/dL Hct 40.5 (37.0-47.0) % MCV 86.9 (81.0-99.0) fL MCH 29.2 (27.0-31.0) pg MCHC 33.6 (32.0-36.0) g/dL RDW 13.5 (12.0-15.0) % Plt Count 312 (130-450) 10^3/uL MPV 10.7 (7.9-10.8) fL Neut # (Auto) 9.4 H (1.5-6.6) 10^3/uL Lymph # (Auto) 2.1 (1.5-3.5) 10^3/uL [place] # (Auto) 0.9 (0.0-1.0) 10^3/uL Eos # (Auto) 0.0 (0.0-0.7) 10^3/uL Baso # (Auto) 0.1 (0.0-0.1) 10^3/uL Absolute Nucleated RBC 0.00 x10^3/uL Nucleated RBC % 0.0 /100WBC PT 12.3 (9.9-12.6) secs INR 1.1 (0.8-1.2) Sodium (135-145) mmol/L Potassium (3.5-5.0) mmol/L Chloride (101-111) mmol/L Carbon Dioxide (21-32) mmol/L Anion Gap (6-13) BUN (6-20) mg/dL Creatinine (0.4-1.0) mg/dL Estimated GFR (MDRD) (>89) Glucose (70-100) mg/dL Calcium (8.5-10.3) mg/dL Total Bilirubin (0.2-1.0) mg/dL AST (10-42) IU/L ALT (10-60) IU/L Alkaline Phosphatase (42-121) IU/L Total Protein (6.7-8.2) g/dL Albumin (3.2-5.5) g/dL Globulin (2.1-4.2) g/dL Albumin/Globulin Ratio (1.0-2.2) Triglycerides ( - 149) mg/dL Cholesterol ( - 199) mg/dL LDL Cholesterol, Calc ( - 129) mg/dL VLDL Cholesterol mg/dL HDL Cholesterol (60 - ) mg/dL LDL/HDL Ratio (<4.4) Cholesterol/HDL Ratio (<4.4) Lipase (22-51) U/L Assessment/Plan - Problem List (1) Stroke Impression: Conclusion/Plan: gerardo completed acute R hemisphere stroke (severe carotid stenosis likely cause) in 83 yo female with stroke risks of Htn and tobacco use Acute CT 02/17, no bleed, no stroke yet evident -MRI pending (deferring right now, given aspiration concern given flat lying for study -Start ASA (got 325 in ED, would have started PO 81 daily, but not safe for PO) -ASA per rectum qd for now until can give PO or per Dobhoff if placed -Added high intensity statin -lipid panel today; TG 124, CHol 174, LDL 93, HDL 56 - Echo: done today; read pending Permissive HTN next 48-96 hrs, IVF over night -As per neuro rec; will need outpatient vascular surgeon consult -PT/OT eval poor activity tolerance>>> PT recommending SNF -PT checking w/ OT re:L shoulder positioning, for sling -Aspiration precautions/ NPO til swallow eval >>>> See BRAID FOLDER eval below Still recommending NPO, patient, granddaquan Miller (POA) aware of possible need for enteric feed if does not improve (if she wants); - Nutrition consult for possible need for tube feeding / Xavier will note recommendations for diet if enteral feed needed I spoke withDaughter and grandson (POA) Abbreviated summary of BRAID FOLDER eval; Pt sitting upright in bed/fed during the assessment. Pt demonstrated missing natural dentition but was able to chew ice . Overall weakness noted with left sided facial droop. Pt demonstrated weak, slow, uncoordinated tongue movement and required max visual and verbal models to protrude and lateralize tongue during assessment. Pt participated in trials of ice chips via spoon. Pt demonstrated adequate lip closure around spoon and was able to chew and swallow given cues. Pt demonstrated delayed reflexive cough following second trial of ice chips. Pt continued to cough and demonstrated anterior spillage and spit secretions. Clinician assisted with suction. Pt cued to continue coughing. Recommended pt remain NPO due to diffulty managing secretions, overall facial weakness, fatigue, and poor reflexive cough following aspiration of ice chips via spoon -VTE prophylaxis ; lovenox (2) Carotid stenosis, bilateral Conclusion/Plan: severe >70% bilaterally will need outpatient vascular surgeon consult Started ASA as per neurology recs Imperitive that patient stop tobacco (3) DNR (do not resuscitate) Conclusion/Plan: Patient confirmed she would not want resuscitation in event of cardiopulmonary arrest (4) Tobacco use Conclusion/Plan: will add low dose nicoderm to avoid nicotine withdrawal PRN bronchodilator (5) Hypertension Conclusion/Plan: Reported as outpatient Dx, not on meds Permissive HTN next 48-96 hrs and even giving fluid this pm Will reeval 6) Hypoglycemia not on insulin, not symptomatic got 1 amp D50 this morning , glucose in 60's (not symptomatic) Per pharmacy [facility], low supply; Not on insulin, D10 not indicated Will increase rate of D5NS, and reeval (continue D5Ns at 75) (Once has swallow eval, will likely be moving towards NG feeds
[2019-02-18] MEDS ORDERED: DEXTROSE 25% ABBOJECT 2.5 GM/10 ML SYRINGE IVP ONE (11:47)
[2019-02-18] MEDS: DEXTROSE 5%-0.9% NACL 1,000 ML IV SCH (13:13)
[2019-02-18] MEDS: ACETAMINOPHEN 1,000 MG/100 ML 100 ML IV PRN (19:59)
[2019-02-18] MEDS: ATORVASTATIN 40 MG TABLET PO SCH (20:01)
[2019-02-19] MEDS: DEXTROSE 5%-0.9% NACL 1,000 ML IV SCH (00:51)
[2019-02-19] MEDS: ACETAMINOPHEN 1,000 MG/100 ML 100 ML IV PRN ×2 (04:26→21:17)
[2019-02-19] MEDS: SODIUM CHLORIDE FLUSH 0.9% 10 ML SYRINGE IVP SCH ×4 (04:29→23:57)
[2019-02-19] MEDS: POLYETHYLENE GLYCOL 3350 17 GM PACKET PO SCH (07:38)
[2019-02-19] MEDS: ZINC OXIDE 20% OINT 28.35 GM TUBE TOP PRN (08:26)
[2019-02-19] MEDS: NICOTINE 7 MG PATCH TOP SCH (08:26)
[2019-02-19] MEDS: ENOXAPARIN 40 MG/0.4 ML SYRINGE SUBQ SCH (08:26)
[2019-02-19] MEDS: NYSTATIN CREAM 15 GM TUBE TOP SCH ×2 (08:26→21:04)
[2019-02-19] MEDS ORDERED: DEXTROSE 5%-0.9% NACL 1,000 ML IV SCH (08:32)
[2019-02-19 09:57] LABS: BASOPHILS # (AUTO) 0.1 10^3/uL (0.0-0.1); BASOPHILS % (AUTO) 0.7 %; EOSINOPHILS # (AUTO) 0.2 10^3/uL (0.0-0.7); EOSINOPHILS % (AUTO) 1.7 %; LYMPHOCYTES # (AUTO) 2.2 10^3/uL (1.5-3.5); LYMPHOCYTES % (AUTO) 21.8 %; MEAN CORPUSCULAR HEMOGLOBIN 29.6 pg (27.0-31.0); MEAN CORPUSCULAR HGB CONC 33.7 g/dL (32.0-36.0); MEAN CORPUSCULAR VOLUME 87.9 fL (81.0-99.0); MEAN PLATELET VOLUME 11.4 fL (7.9-10.8); MONOCYTES % (AUTO) 10.3 %; NEUTROPHILS # (AUTO) 6.5 10^3/uL (1.5-6.6); NEUTROPHILS % (AUTO) 65.1 %; PLT - PLATELET COUNT 271 10^3/uL (130-450); RED BLOOD COUNT 4.39 10^6/uL (4.20-5.40); RED CELL DISTRIBUTION WIDTH 13.8 % (12.0-15.0)
[2019-02-19 10:44] LABS: CREATININE 0.5 mg/dL (0.4-1.0); MAGNESIUM 1.7 mg/dL (1.7-2.8)
[2019-02-19 10:45] LABS: ALBUMIN 3.6 g/dL (3.2-5.5); ALBUMIN/GLOBULIN RATIO 1.4 (1.0-2.2); BILIRUBIN,TOTAL 1.1 mg/dL (0.2-1.0); TOTAL PROTEIN 6.1 g/dL (6.7-8.2)
[2019-02-19] MEDS: ASPIRIN 300 MG SUPP PR SCH (12:12)
[2019-02-19] MEDS: POTASSIUM CHLORIDE INJ 40 MEQ in DEXTROSE 5%-0.45% NACL 980 ML IV SCH ×2 (12:13→21:18)
--- NOTE | 2019-02-19 13:22 | PROVIDER PROGRESS NOTE ---
Subjective - Prog Note Date Prog Note Date: 02/19/19 - Subjective Pt reports feeling: Improved Subjective: pt's speech is still slow but understandable. she report she feels better today but pt sill present profound left side weakness, facial droop. Pt still fails ST's evaluation, can not swallow. DPOA and family prefer to have PEG for pt. Surgeon was consulted for pt. Current Medications - Current Medications Current Medications: Active Medications Acetaminophen (Tylenol) 650 mg PO Q4HR PRN PRN Reason: Pain 1 to 4 Albuterol () 2.5 mg INH RTQ4H PRN PRN Reason: Wheezing Albuterol/Ipratropium (Duoneb) 3 ml INH Q4HR PRN PRN Reason: Wheezing Aspirin () [address] DAILY [facility] Last Admin: 02/19/19 12:12 Dose: 300 mg Atorvastatin Calcium (Lipitor) 40 mg PO QPM [facility] Last Admin: 02/18/19 20:01 Dose: Not Given Enoxaparin Sodium (Lovenox) 40 mg SUBQ DAILY [facility] Last Admin: 02/19/19 08:26 Dose: 40 mg Acetaminophen (Ofirmev) 100 mls @ 400 mls/hr IV Q6HR PRN PRN Reason: PAIN Last Infusion: 02/19/19 04:41 Dose: Infused Potassium Chloride 40 meq/ (Dextrose/Sodium Chloride) 1,000 mls @ 100 mls/hr IV .Q10H [facility] Last Admin: 02/19/19 12:13 Dose: 100 mls/hr Multi-Ingredient Ointment (Zinc Oxide) 1 applic TOP PRN PRN PRN Reason: Skin Care Last Admin: 02/19/19 08:26 Dose: 1 applic Nicotine (Nicoderm) 1 patch TOP DAILY [facility] Last Admin: 02/19/19 08:26 Dose: 1 patch Nystatin (Mycostatin Cream) 1 applic TOP BID [facility] Last Admin: 02/19/19 08:26 Dose: 1 applic Ondansetron HCl (Zofran Inj) 4 mg IVP Q6HR PRN PRN Reason: Nausea / Vomiting Ondansetron HCl (Zofran Odt) 4 mg TL Q6HR PRN PRN Reason: Nausea / Vomiting Polyethylene Glycol (Miralax) 17 gm PO DAILY [facility] Last Admin: 02/19/19 07:38 Dose: Not Given Sodium Chloride (Normal Saline Flush 0.9%) 10 ml IVP PRN PRN PRN Reason: NEEDED PER PROVIDER ORDERS Sodium Chloride (Normal Saline Flush 0.9%) 10 ml IVP 0100,0900,1700 [facility] Last Admin: 02/19/19 10:38 Dose: Not Given Objective - Vital Signs/Intake & Output Reviewed Vital Signs: Yes Vital Signs: Vital Signs x48h Temp Pulse Pulse Pulse Pulse Resp BP 02/19/19 11:09 36.4 C L 60 16 156/78 H 02/19/19 10:17 76 65 02/19/19 09:12 114 H 22 02/19/19 09:05 36.4 C L 74 18 167/63 H BP BP Pulse Ox 02/19/19 11:09 94 02/19/19 10:17 172/70 H 167/61 H 02/19/19 09:12 02/19/19 09:05 92 Intake & Output: Intake & Output 02/16/19 02/17/19 02/18/19 02/19/19 23:59 23:59 23:59 23:59 Intake Total 2239.167 Output Total 450 Balance 2286.239 6481.00 - Objective General Appearance: positive: No acute distress, Alert. negative: Lethargic Eyes Bilateral: positive: Normal inspection, PERRL, No lid inflammation, Conjunctivae nml ENT: positive: ENT inspection nml, Pharynx nml, No signs of dehydration. negative: Purulent nasal drainage, Pharyngeal erythema, Oral lesions Neck: positive: Nml inspection, Thyroid nml, No JVD, Trachea midline. negative: Thyromegaly, Lymphadenopathy (R), Lymphadenopathy (L), Stiff neck, Swelling/bruising, Tracheal deviation Respiratory: positive: Chest non-tender, No respiratory distress, Breath sounds nml. negative: Wheezes, Rales, Rhonchi Cardiovascular: positive: Regular rate & rhythm, No murmur, No gallop. ne gative: Irregularly irregular, Extrasystoles, Tachycardia, Bradycardia, JVD present, Systolic murmur, Diastolic murmur Peripheral Pulses: 2+ Radial (R), 2+ Radial (L), 2+ Dorsalis pedis (R), 2+ Dorsalis pedis (L) Abdomen: positive: Non-tender, No organomegaly, Nml bowel sounds, No distention. negative: Tenderness, Guarding, Rebound Back: positive: Nml inspection. negative: CVA tenderness (R), CVA tenderness (L) Skin: positive: Color nml, No rash, Warm, Dry. negative: Cyanosis, Diaphoresis, Pallor Extremities: positive: Non-tender, Nml appearance. negative: Full ROM, Calf tenderness, Joint swelling, Donald's sign/cords Neurologic/Psychiatric: positive: Oriented x3, Mood/affect nml, Weakness, Sensory loss, Facial droop, Slurred/abnml speech. negative: Motor nml, Sensation nml, Depressed mood/affect - Lab Results Fish Bones: 02/19/19 09:41 02/19/19 09:41 Other Labs: Lab Results x24hrs 02/19/19 02/19/19 Range/Units 09:41 09:41 WBC 10.0 (4.8-10.8) x10^3/uL RBC 4.39 (4.20-5.40) 10^6/uL Hgb 13.0 (12.0-16.0) g/dL Hct 38.6 (37.0-47.0) % MCV 87.9 (81.0-99.0) fL MCH 29.6 (27.0-31.0) pg MCHC 33.7 (32.0-36.0) g/dL RDW 13.8 (12.0-15.0) % Plt Count 271 (130-450) 10^3/uL MPV 11.4 H (7.9-10.8) fL Neut # (Auto) 6.5 (1.5-6.6) 10^3/uL Lymph # (Auto) 2.2 (1.5-3.5) 10^3/uL [place] # (Auto) 1.0 (0.0-1.0) 10^3/uL Eos # (Auto) 0.2 (0.0-0.7) 10^3/uL Baso # (Auto) 0.1 (0.0-0.1) 10^3/uL Absolute Nucleated RBC 0.00 x10^3/uL Nucleated RBC % 0.0 /100WBC Sodium 142 (135-145) mmol/L Potassium 3.1 L (3.5-5.0) mmol/L Chloride 106 (101-111) mmol/L Carbon Dioxide 24 (21-32) mmol/L Anion Gap 12.0 (6-13) BUN 8 (6-20) mg/dL Creatinine 0.5 (0.4-1.0) mg/dL Estimated GFR (MDRD) 118 (>89) Glucose 112 H (70-100) mg/dL Calcium 9.0 (8.5-10.3) mg/dL Magnesium 1.7 (1.7-2.8) mg/dL Total Bilirubin 1.1 H (0.2-1.0) mg/dL AST 22 (10-42) IU/L ALT 10 (10-60) IU/L Alkaline Phosphatase 67 (42-121) IU/L Total Protein 6.1 L (6.7-8.2) g/dL Albumin 3.6 (3.2-5.5) g/dL Globulin 2.5 (2.1-4.2) g/dL Albumin/Globulin Ratio 1.4 (1.0-2.2) ABX Reporting Has patient been on IV antibiotics over the past 48 hours?: No Sepsis Event Note (H) - Evaluation Current Stage of Sepsis: Ruled out Assessment/Plan - Problem List (1) Cerebrovascular accident (CVA) Impression: pt still present profound left side weakness, with left facial droop, dysphagia. CTA of neck reveals significant carotid stenosis. Due to pt has significant oral secretion, and pt's dysphagia, pt had cough when she was flat. MRI was hold for prevention of aspiration. CTA reveals possible cause, clinically pt present Stroke and left side profound weakness with left facial droop, dysphagia, and slurred speech which is improving. continue Aspirin SP, will hasve statin after pt has PEG continue PT/OT. Pt failed ST evaluation and treatment third time, surgeon was called for PEG, pt's DPOA decline to have NG tube. ECHO reveals unremarkable. advise pt's DPOA for pt to followup vascular surgeon for carotid stenosis Aspiration precaution consult with sales route driver for PEG feed (2) dysphagia pt still present significant dysphagia. ST reveals pt for three times but pt is not improved yet. consult with surgeon. pt's DPOA decline NG tube for pt consult with sales route driver continue NPO continue D5 1/2 NS with 40 meq K continue Aspiration precaution (3) Carotid stenosis, bilateral Conclusion/Plan: CTA of neck reveals severe stenosis >70% bilaterally Pt's DPOA was advised for pt to have outpatient vascular surgeon consult Started ASA as per neurology recs (4) DNR (do not resuscitate) Conclusion/Plan: Patient request DNR (5) Tobacco use Conclusion/Plan: pt is currently smoking tobacco nowl. low dose nicoderm was ordered for pt to avoid nicotine withdrawal PRN bronchodilator (6) Hypertension Conclusion/Plan: pt is Permissive HTN next 48-96 hrs and even giving fluid this pm Reported as outpatient Dx, not on meds continue vital monitor add PRN hydralazine for HTN (7) Hypoglycemia resolved now. continue D5 1/2 NS until pt has PEG feed Qualifiers: CVA mechanism: unspecified Qualified Code(s): I63.9 - Cerebral infarction, unspecified
[2019-02-19] MEDS ORDERED: hydrALAZINE INJ 20 MG/ML VIAL IVP PRN (14:00)
--- NOTE | 2019-02-19 15:36 | ANESTHESIA ---
Pre-Anesthesia VS, & Labs - Diagnosis Dysphagia s/p CVA - Procedure Gastroscopy, PEG tube insertion Vital Signs: Temp Pulse Resp BP Pulse Ox 36.4 C L 60 16 156/78 H 94 02/19/19 11:09 02/19/19 11:09 02/19/19 11:09 02/19/19 11:09 02/19/19 11:09 Height 5 ft Weight (kg) 63.503 kg Body Mass Index 27.3 - NPO >8 hours - Is Patient ?: No - Lab Results Current Lab Results: Laboratory Tests 02/19/19 09:41: Sodium 142, Potassium 3.1 L, Chloride 106, Carbon Dioxide 24, Anion Gap 12.0, BUN 8, Creatinine 0.5, Estimated GFR (MDRD) 118, Glucose 112 H, Calcium 9.0, Magnesium 1.7, Total Bilirubin 1.1 H, AST 22, ALT 10, Alkaline Phosphatase 67, Total Protein 6.1 L, Albumin 3.6, Globulin 2.5, Albumin/Globulin Ratio 1.4 02/19/19 09:41: WBC 10.0, RBC 4.39, Hgb 13.0, Hct 38.6, MCV 87.9, MCH 29.6, MCHC 33.7, RDW 13.8, Plt Count 271, MPV 11.4 H, Neut # (Auto) 6.5, Lymph # (Auto) 2.2, [place] # (Auto) 1.0, Eos # (Auto) 0.2, Baso # (Auto) 0.1, Absolute Nucleated RBC 0.00, Nucleated RBC % 0.0 02/18/19 04:40: Sodium 143, Potassium 3.5, Chloride 106, Carbon Dioxide 21, Anion Gap 16.0 H, BUN 19, Creatinine 0.5, Estimated GFR (MDRD) 118, Glucose 48 L*, Calcium 9.1, Triglycerides 124, Cholesterol 174, LDL Cholesterol, Calc 93, VLDL Cholesterol 25, HDL Cholesterol 56 L, LDL/HDL Ratio 1.7, Cholesterol/HDL Ratio 3.1 02/18/19 04:40: WBC 10.2, RBC 4.21, Hgb 12.4, Hct 37.0, MCV 87.9, MCH 29.5, MCHC 33.5, RDW 13.9, Plt Count 273, MPV 11.5 H 02/17/19 14:00: Sodium 141, Potassium 3.9, Chloride 100 L, Carbon Dioxide 24, Anion Gap 17.0 H, BUN 18, Creatinine 0.6, Estimated GFR (MDRD) 95, Glucose 76, Calcium 10.0, Total Bilirubin 1.3 H, AST 29, ALT 13, Alkaline Phosphatase 83, Total Protein 7.4, Albumin 4.4, Globulin 3.0, Albumin/Globulin Ratio 1.5, Lipase 20 L 02/17/19 14:00: PT 12.3, INR 1.1 02/17/19 14:00: WBC 12.5 H, RBC 4.66, Hgb 13.6, Hct 40.5, MCV 86.9, MCH 29.2, MCHC 33.6, RDW 13.5, Plt Count 312, MPV 10.7, Neut # (Auto) 9.4 H, Lymph # (Auto) 2.1, [place] # (Auto) 0.9, Eos # (Auto) 0.0, Baso # (Auto) 0.1, Absolute Nucleated RBC 0.00, Nucleated RBC % 0.0 Lab results reviewed: Yes Fish Bones: 02/19/19 09:41 02/19/19 09:41 Home Medications and Allergies Active Medications Acetaminophen (Tylenol) 650 mg PO Q4HR PRN PRN Reason: Pain 1 to 4 Albuterol () 2.5 mg INH RTQ4H PRN PRN Reason: Wheezing Albuterol/Ipratropium (Duoneb) 3 ml INH Q4HR PRN PRN Reason: Wheezing Aspirin () 300 mg MS DAILY [facility] Last Admin: 02/19/19 12:12 Dose: 300 mg Atorvastatin Calcium (Lipitor) 40 mg PO QPM [facility] Last Admin: 02/18/19 20:01 Dose: Not Given Enoxaparin Sodium (Lovenox) 40 mg SUBQ DAILY [facility] Last Admin: 02/19/19 08:26 Dose: 40 mg Hydralazine HCl (Apresoline Inj) 10 mg IVP QID PRN PRN Reason: Hypertensive Emergency Acetaminophen (Ofirmev) 100 mls @ 400 mls/hr IV Q6HR PRN PRN Reason: PAIN Last Infusion: 02/19/19 04:41 Dose: Infused Potassium Chloride 40 meq/ (Dextrose/Sodium Chloride) 1,000 mls @ 100 mls/hr IV .Q10H [facility] Last Admin: 02/19/19 12:13 Dose: 100 mls/hr Multi-Ingredient Ointment (Zinc Oxide) 1 applic TOP PRN PRN PRN Reason: Skin Care Last Admin: 02/19/19 08:26 Dose: 1 applic Nicotine (Nicoderm) 1 patch TOP DAILY [facility] Last Admin: 02/19/19 08:26 Dose: 1 patch Nystatin (Mycostatin Cream) 1 applic TOP BID [facility] Last Admin: 02/19/19 08:26 Dose: 1 applic Ondansetron HCl (Zofran Inj) 4 mg IVP Q6HR PRN PRN Reason: Nausea / Vomiting Ondansetron HCl (Zofran Odt) 4 mg TL Q6HR PRN PRN Reason: Nausea / Vomiting Polyethylene Glycol (Miralax) 17 gm PO DAILY [facility] Last Admin: 02/19/19 07:38 Dose: Not Given Sodium Chloride (Normal Saline Flush 0.9%) 10 ml IVP PRN PRN PRN Reason: NEEDED PER PROVIDER ORDERS Sodium Chloride (Normal Saline Flush 0.9%) 10 ml IVP 0100,0900,1700 [facility] Last Admin: 02/19/19 10:38 Dose: Not Given Allergies/Adverse Reactions: Allergies Allergy/AdvReac Type Severity Reaction Status Date / Time No Known Drug Allergies Allergy Verified 02/17/19 13:55 Anes History & Medical History - Anesthetic History Anesthesia Complications: reports: No previous complications Family history of Anesthesia Complications: Denies Family history of Malignant Hyperthermia: Denies - Medical History Cardiovascular: reports: Hypertension Pulmonary: reports: None, Other (once had an inhaler, no dx of COPD, no bronchodilator) Gastrointestinal: reports: None, Other (colostomy; unclear what pathology was resulting in this) Urinary: reports: None Neuro: reports: None, CVA Musculoskeletal: reports: None Endocrine/Autoimmune: reports: None Blood Disorders: reports: None Skin: reports: None Smoking Status: Current every day smoker Psychosocial: reports: No issues indicated - Surgical History General: Bowel surgery Exam General: Alert Dental: WNL Mouth Openin Fingerbreadth Neck Mobility: Normal Mallampati classification: II Thyromental Distance: greater than 6 cm Respiratory: Other (dECREASED BREATH SOUNDS THROUGHOUT) Mental/Cognitive Status: Alert/Oriented X3 Plan Anesthesia Type: MAC Consent for Procedure(s) Verified and Reviewed: Yes Code Status: Attempt Resuscitation ASA classification: 3-Severe systemic disease Is this case an emergency?: No
--- NOTE | 2019-02-19 15:42 | CONSULTATION NOTE ---
Referring Provider Name of Referring Provider:: Sanchez [facility] Consult Date: 02/19/19 Chief Complaint - Chief Complaint Chief Complaint: dysphagia History of Present Illness - Admitted From Admitted From:: ER - History Obtained From Records Reviewed: yes History obtained from: pt, family, records Exam Limitations: pt has dysarthria s/p CVA - History of Present Illness HPI Comment/Other: 83 yo female admitted following a right hemispheric CVA with left hemiparesis. Evaluation included a swallowing study reportedly showing severe dysmotility and high aspiration risk. Consultation requested regarding placement of a PEG tube to facilitate nutritional support. No hx GERD or aspiration. Pt is s/p LLQ colostomy for unclear reasons. No reports of GI tract dysfunction otherwise. History is limited due to CVA and dysarthria. History - Past Medical History Cardiovascular: reports: Hypertension Respiratory: reports: None, Other (once had an inhaler, no dx of COPD, no bronchodilator) Neuro: reports: None, CVA Endocrine/Autoimmune: reports: None GI: reports: None, Other (colostomy; unclear what pathology was resulting in this) RESEARCH PHARMACIST: reports: Other (5 children) : reports: None HEENT: reports: None Psych: reports: None Musculoskeletal: reports: None MRSA Hx?: No - Past Surgical History General: reports: Bowel surgery (left sided colostomy) - Family & Social History Family History Comment/Other: Has 3 daughters and 2 sons, Daughter Lea parker in [facility] Charissa (also daughter) From [place] originally Living arrangement: At home Living Situation: With caregiver(s) Social History Notes: llives alone, BJ is daughers friend, helping her since early this week (patient vague on when she is there - Substance History Use: Uses substance without health or social issues: Tobacco (1 pack last 2-3 days now (vague on this ) since early 's), Alcohol (no ETOH) Meds/Allgy - Home Medications Home Medications: Ambulatory Orders Medication Instructions Recorded Confirmed Albuterol Sulfate [Proventil Hfa 1 - 2 puffs IH Q4H PRN #1 12/24/17 02/18/19 Inhaler] hfa.aer.ad - Allergies Allergies/Adverse Reactions: Allergies Allergy/AdvReac Type Severity Reaction Status Date / Time No Known Drug Allergies Allergy Verified 02/17/19 13:55 Review of Systems - All Other Systems All Other Systems: reports: Other (unobtainable due to severe dysarthria) Exam - Vital Signs Reviewed Vital Signs: Yes Vital Signs: Vital Signs x48h Temp Pulse Pulse Pulse Pulse Resp BP 02/19/19 11:09 36.4 C L 60 16 156/78 H 02/19/19 10:17 76 65 02/19/19 09:12 114 H 22 02/19/19 09:05 36.4 C L 74 18 167/63 H BP BP Pulse Ox 02/19/19 11:09 94 02/19/19 10:17 172/70 H 167/61 H 02/19/19 09:12 02/19/19 09:05 92 - Physical Exam General Appearance: positive: No acute distress, Lethargic Eyes Bilateral: positive: Conjunctivae nml, No scleral icterus ENT: positive: ENT inspection nml, Pharynx nml, No signs of dehydration Neck: positive: Nml inspection, No JVD. negative: Lymphadenopathy (R), Lymphadenopathy (L) Respiratory: positive: Chest non-tender, No respiratory distress, Breath sounds nml Cardiovascular: positive: Regular rate & rhythm, No murmur, No gallop Abdomen: positive: Non-tender, No organomegaly, Nml bowel sounds, No distention, Other (colostomy in LLQ; lower midline surgical scar). negative: Hepatomegaly, Splenomegaly Skin: positive: Color nml, No rash, Warm, Dry. negative: Cyanosis Extremities: positive: No pedal edema. negative: Calf tenderness Conclusion/Plan - Diagnosis Diagnosis: Dysphagia s/p CVA; at risk for aspiration with oral feeding. - Plan Plan: I advised pt to have a PEG tube placed to facilitate nutrition. PAR conf in detail with pt, daughter and grandson, and consent obtained. The procedure will be performed later today. - Lab Results Lab results reviewed: Yes Fish Bones: 02/19/19 09:41 02/19/19 09:41
[2019-02-19] MEDS ORDERED: LACTATED RINGERS 1,000 ML IV ONE ×2 (19:19)
[2019-02-19] MEDS ORDERED: LIDOCAINE-MPF 1% 2 ML AMP SUBQ ONE (19:34)
--- NOTE | 2019-02-19 20:17 | PROCEDURE REPORT ---
Hospitalist Procedure Note - Procedure Note Procedure Note: EGD with PEG tube placement and biopsy performed without apparent complication. See formal [facility] report. Rec: begin tube feedings in am as tolerated if doing well.
[2019-02-19] MEDS: ATORVASTATIN 40 MG TABLET PO SCH (21:04)
[2019-02-19] MEDS: MORPHINE 2 MG/ML CARPUJECT IVP PRN (23:56)
[2019-02-20] MEDS: MORPHINE 2 MG/ML CARPUJECT IVP PRN ×2 (02:29→10:47)
[2019-02-20] MEDS: SODIUM CHLORIDE FLUSH 0.9% 10 ML SYRINGE IVP PRN (02:29)
[2019-02-20 05:37] LABS: BASOPHILS % (AUTO) 0.2 %; EOSINOPHILS % (AUTO) 0.1 %; LYMPHOCYTES # (AUTO) 1.3 10^3/uL (1.5-3.5); LYMPHOCYTES % (AUTO) 5.9 %; MEAN CORPUSCULAR HEMOGLOBIN 28.9 pg (27.0-31.0); MEAN CORPUSCULAR HGB CONC 33.1 g/dL (32.0-36.0); MEAN CORPUSCULAR VOLUME 87.5 fL (81.0-99.0); MEAN PLATELET VOLUME 11.3 fL (7.9-10.8); MONOCYTES # (AUTO) 1.2 10^3/uL (0.0-1.0); MONOCYTES % (AUTO) 5.2 %; NEUTROPHILS % (AUTO) 88.2 %; PLT - PLATELET COUNT 245 10^3/uL (130-450); RED BLOOD COUNT 4.15 10^6/uL (4.20-5.40); RED CELL DISTRIBUTION WIDTH 13.8 % (12.0-15.0); WHITE BLOOD COUNT 22.7 x10^3/uL (4.8-10.8)
[2019-02-20 05:49] LABS: ALBUMIN 3.1 g/dL (3.2-5.5); ALBUMIN/GLOBULIN RATIO 1.2 (1.0-2.2); BILIRUBIN,TOTAL 0.9 mg/dL (0.2-1.0); CALCIUM 8.5 mg/dL (8.5-10.3); CREATININE 0.4 mg/dL (0.4-1.0); TOTAL PROTEIN 5.6 g/dL (6.7-8.2)
[2019-02-20] MEDS: POTASSIUM CHLORIDE INJ 40 MEQ in DEXTROSE 5%-0.45% NACL 980 ML IV SCH (07:10)
[2019-02-20] MEDS ORDERED: POTASSIUM CHLORIDE INJ 40 MEQ in DEXTROSE 5%-0.45% NACL 980 ML IV SCH (07:27)
[2019-02-20 07:52] LABS: BASOPHILS # (AUTO) 0.1 10^3/uL (0.0-0.1); BASOPHILS % (AUTO) 0.4 %; EOSINOPHILS % (AUTO) 0.1 %; HGB - HEMOGLOBIN 12.7 g/dL (12.0-16.0); LYMPHOCYTES # (AUTO) 1.8 10^3/uL (1.5-3.5); LYMPHOCYTES % (AUTO) 7.9 %; MEAN CORPUSCULAR HEMOGLOBIN 29.7 pg (27.0-31.0); MEAN CORPUSCULAR VOLUME 87.1 fL (81.0-99.0); MEAN PLATELET VOLUME 11.2 fL (7.9-10.8); MONOCYTES # (AUTO) 1.2 10^3/uL (0.0-1.0); MONOCYTES % (AUTO) 5.4 %; NEUTROPHILS # (AUTO) 19.1 10^3/uL (1.5-6.6); NEUTROPHILS % (AUTO) 85.7 %; PLT - PLATELET COUNT 265 10^3/uL (130-450); RED BLOOD COUNT 4.28 10^6/uL (4.20-5.40); RED CELL DISTRIBUTION WIDTH 13.9 % (12.0-15.0); WHITE BLOOD COUNT 22.3 x10^3/uL (4.8-10.8)
[2019-02-20] MEDS: POLYETHYLENE GLYCOL 3350 17 GM PACKET PO SCH (07:55)
[2019-02-20 08:18] LABS: PLATELET ESTIMATE, MANUAL NORMAL (130-450,000) (NORMAL); PLATELET MORPHOLOGY 1+ LARGE PLATELETS (NORMAL); RBC MORPHOLOGY (MULTIPLE) NORMAL APPEARANCE (NORMAL)
[2019-02-20 08:23] LABS: BILIRUBIN,URINE NEGATIVE (NEGATIVE); GLUCOSE, URINE (UA) NEGATIVE (NEGATIVE); KETONES,URINE (UA) NEGATIVE (NEGATIVE); LEUKOCYTE ESTERASE, URINE NEGATIVE (NEGATIVE); NITRITE,URINE NEGATIVE (NEGATIVE); OCCULT BLOOD,URINE TRACE-LYSE (NEGATIVE); PROTEIN,URINE NEGATIVE (NEGATIVE); UROBILINOGEN,URINE 0.2 (NORMAL) E.U./dL (NORMAL)
[2019-02-20 08:24] LABS: CLARITY,URINE HAZY (CLEAR)
[2019-02-20 08:36] LABS: BACTERIA,URINE Rare /HPF (None Seen); RBC,URINE 0-5 /HPF (0-5); SQUAMOUS EPITHELIAL CELL,UR FEW Squamous (<= Few)
[2019-02-20] MEDS ORDERED: SODIUM CHLORIDE 0.9% 1,000 ML IV SCH (10:00)
[2019-02-20] MEDS: ENOXAPARIN 40 MG/0.4 ML SYRINGE SUBQ SCH (10:46)
[2019-02-20] MEDS: ONDANSETRON 4 MG/2 ML VIAL IVP PRN (10:47)
[2019-02-20] MEDS: NICOTINE 7 MG PATCH TOP SCH (10:47)
[2019-02-20] MEDS: SODIUM CHLORIDE FLUSH 0.9% 10 ML SYRINGE IVP SCH ×2 (10:48→19:35)
[2019-02-20] MEDS: NYSTATIN CREAM 15 GM TUBE TOP SCH ×2 (10:48→20:36)
[2019-02-20] MEDS: PIPERACILLIN/TAZOBACTAM 3.375 GM in SODIUM CHLORIDE 0.9% MINIBAG 100 ML IV SCH ×3 (10:48→21:46)
[2019-02-20] MEDS ORDERED: IOVERSOL 320 100 ML VIAL IVP ONE ×2 (10:49→13:48)
[2019-02-20] MEDS: ACETAMINOPHEN 1,000 MG/100 ML 100 ML IV PRN ×2 (10:49→19:34)
[2019-02-20] MEDS: ASPIRIN 300 MG SUPP PR SCH (10:53)
--- NOTE | 2019-02-20 11:31 | XRAY Report ---
Reason: SOB Procedure Date: 02/20/2019 Accession Number: [id number] / [id number] Procedure: XR - Chest 1 View X-Ray CPT Code: 13212 FULL RESULT: EXAM: CHEST RADIOGRAPHY EXAM DATE: 02/20/2019 08:07 AM. CLINICAL HISTORY: Shortness of breath. COMPARISON: CHEST 2 VIEW 12/24/2017 1:53 PM. TECHNIQUE: 1 view. FINDINGS: Lungs/Pleura: There is a new ill-defined somewhat nodular opacity at the right base not appreciated on prior study measuring approximately 2.0 x 4.6 cm. The remainder of the lungs are clear. The point vasculature is unremarkable. Mediastinum: Within exam limitations, the cardiomediastinal contour is normal. Other: None. IMPRESSION: 1. New nodular density right base measuring 2.0 x 4.6 cm. It could represent consolidation, nodule or overlying opacity. Attention on follow-up radiography or CT may be considered. 2. The remainder of the lungs appear clear. [facility]
--- NOTE | 2019-02-20 11:37 | PROVIDER PROGRESS NOTE ---
Assessment/Plan - Problem List (1) Leukocytosis Assessment/Plan: one day s/p EGD with PEG; etiology unclear at this time; certainly at risk for pneumonitis; no clinical evidence of GI complication from G tube placement at present. Rec: agree with sepsis w/u including CT abd/pelvis. Will follow. Discussed with SARY Rothman. - Current Meds Current Meds: Current Medications Generic Name Dose Route Start Last Admin Trade Name Freq PRN Reason Stop Dose Admin Aspirin 300 mg 02/18/19 11:00 02/20/19 10:53 FL 300 mg DAILY ERIC Administration Atorvastatin Calcium 40 mg 02/17/19 21:00 02/19/19 21:04 Lipitor PO Not Given QPM ERIC Enoxaparin Sodium 40 mg 02/18/19 09:00 02/20/19 10:46 Lovenox SUBQ 40 mg DAILY ERIC Administration Acetaminophen 100 mls @ 400 mls/hr 02/17/19 22:36 02/20/19 11:12 Ofirmev IV Infused Q6HR PRN Infusion PAIN Piperacillin Sod/Tazobactam 100 mls @ 200 mls/hr 02/20/19 10:00 02/20/19 10:48 Sod 3.375 gm/ Sodium Chloride IV 200 mls/hr Q6H ERIC Administration Sodium Chloride 1,000 mls @ 83.333 mls/hr 02/20/19 10:00 02/20/19 10:48 Normal Saline 0.9% IV 02/20/19 21:59 83.333 mls/hr .Q12H ERIC Administration Morphine Sulfate 2 mg 02/19/19 23:45 02/20/19 10:47 Morphine (Carpuject) IVP 2 mg Q2HR PRN Administration PAIN Multi-Ingredient Ointment 1 applic 02/17/19 19:20 02/19/19 08:26 Zinc Oxide TOP 1 applic PRN PRN Administration Skin Care Nicotine 1 patch 02/18/19 09:00 02/20/19 10:47 Nicoderm TOP 1 patch DAILY ERIC Administration Nystatin 1 applic 02/17/19 22:00 02/20/19 10:48 Mycostatin Cream TOP 1 applic BID ERIC Administration Ondansetron HCl 4 mg 02/17/19 16:41 02/20/19 10:47 Zofran Inj IVP 4 mg Q6HR PRN Administration Nausea / Vomiting Polyethylene Glycol 17 gm 07/25/19 09:00 02/20/19 07:55 Miralax PO Not Given DAILY ERIC Sodium Chloride 10 ml 02/17/19 16:41 02/20/19 02:29 Normal Saline Flush 0.9% IVP 10 ml PRN PRN Administration NEEDED PER PROVIDER ORDERS Sodium Chloride 10 ml 02/17/19 17:00 02/20/19 10:48 Normal Saline Flush 0.9% IVP 10 ml 0100,0900,1700 ERIC Administration - Lab Result Lab results reviewed: Yes Fish Bone Diagrams: 02/20/19 07:44 02/20/19 05:28 - Additional Planning Condition/Complexity: Guarded Plan Discussed with:: Other (hospitalist) Time Spent: 15-30 minutes Subjective - Subjective Patient Reports: Abdominal Pain (c/o luq pain at site of g tube insertion;) Objective Vital Signs: Vital Signs - 24 hr 02/19/19 02/19/19 02/19/19 16:00 19:48 19:55 Temperature 36.6 C 36.5 C Heart Rate 60 55 L Heart Rate [ 69 Brachial] Respiratory 18 16 15 Rate Blood Pressure 159/60 H 167/56 H Blood Pressure [Left Brachial artery] Blood Pressure 153/57 H [Right Brachial artery] O2 Saturation 94 98 99 02/19/19 02/19/19 02/19/19 20:00 20:10 20:22 Temperature 36.8 C 36.5 C Heart Rate 77 55 L Heart Rate [ 64 Brachial] Respiratory 20 16 16 Rate Blood Pressure 168/58 H 169/78 H Blood Pressure 165/66 H [Left Brachial artery] Blood Pressure [Right Brachial artery] O2 Saturation 98 99 95 02/19/19 02/19/19 02/20/19 20:35 23:49 04:00 Temperature 36.3 C L 37.0 C Heart Rate Heart Rate [ 62 75 Brachial] Respiratory 16 20 Rate Blood Pressure Blood Pressure [Left Brachial artery] Blood Pressure 170/64 H 174/69 H 146/60 H [Right Brachial artery] O2 Saturation 95 94 92 02/20/19 02/20/19 02/20/19 04:30 07:49 11:21 Temperature 37.6 C H 37.2 C Heart Rate Heart Rate [ 79 74 Brachial] Respiratory 19 Rate Blood Pressure Blood Pressure [Left Brachial artery] Blood Pressure 158/78 H [Right Brachial artery] O2 Saturation 93 Oxygen O2 Source Room air I&O (Last 24 Hrs): Intake and Output Totals x24h 02/18/19 02/19/19 02/20/19 23:59 23:59 23:59 Intake Total 2239.167 2978.333 1601.667 Output Total 450 550 Balance 2103.669 1821.333 1601.667 General: Mild distress HEENT: Other (dry mucous membranes) Neck: No JVD Respiratory: Chest non-tender, No respiratory distress, Breath sounds nml Abdomen: Soft, No hepatospenomegaly, No masses, Other (expected tenderness ar ound G tube site; no drainage around site, no erythema; stoma LLQ with no output; abd ow soft, nondistended, nontender; hypoactive bowel tones.) Extremities: No edema, No tenderness/swelling - Results Results: Laboratory Results WBC 22.3 x10^3/uL (4.8-10.8) H 02/20/19 07:44 RBC 4.28 10^6/uL (4.20-5.40) 02/20/19 07:44 Hgb 12.7 g/dL (12.0-16.0) 02/20/19 07:44 Hct 37.3 % (37.0-47.0) 02/20/19 07:44 MCV 87.1 fL (81.0-99.0) 02/20/19 07:44 MCH 29.7 pg (27.0-31.0) 02/20/19 07:44 MCHC 34.0 g/dL (32.0-36.0) 02/20/19 07:44 RDW 13.9 % (12.0-15.0) 02/20/19 07:44 Plt Count 265 10^3/uL (130-450) 02/20/19 07:44 MPV 11.2 fL (7.9-10.8) H 02/20/19 07:44 Neut # (Auto) 19.1 10^3/uL (1.5-6.6) H 02/20/19 07:44 Lymph # (Auto) 1.8 10^3/uL (1.5-3.5) 02/20/19 07:44 [place] # (Auto) 1.2 10^3/uL (0.0-1.0) H 02/20/19 07:44 Eos # (Auto) 0.0 10^3/uL (0.0-0.7) 02/20/19 07:44 Baso # (Auto) 0.1 10^3/uL (0.0-0.1) 02/20/19 07:44 Absolute Nucleated RBC 0.00 x10^3/uL 02/20/19 07:44 Nucleated RBC % 0.0 /100WBC 02/20/19 07:44 Manual Slide Review Indicated 02/20/19 07:44 WBC Morphology 1+ SMUDGE CELLS (NORMAL) 02/20/19 07:44 Platelet Estimate NORMAL (130-450,000) (NORMAL) 02/20/19 07:44 Platelet Morphology 1+ LARGE PLATELETS (NORMAL) 02/20/19 07:44 RBC Morph Micro Appear NORMAL APPEARANCE (NORMAL) 02/20/19 07:44 PT 12.3 secs (9.9-12.6) 02/17/19 14:00 INR 1.1 (0.8-1.2) 02/17/19 14:00 Sodium 139 mmol/L (135-145) 02/20/19 05:28 Potassium 3.8 mmol/L (3.5-5.0) 02/20/19 05:28 Chloride 106 mmol/L (101-111) 02/20/19 05:28 Carbon Dioxide 25 mmol/L (21-32) 02/20/19 05:28 Anion Gap 8.0 (6-13) 02/20/19 05:28 BUN 7 mg/dL (6-20) 02/20/19 05:28 Creatinine 0.4 mg/dL (0.4-1.0) 02/20/19 05:28 Estimated GFR (MDRD) 152 (>89) 02/20/19 05:28 Glucose 153 mg/dL (70-100) H 02/20/19 05:28 Lactic Acid 0.8 mmol/L (0.5-2.2) 02/20/19 07:44 Calcium 8.5 mg/dL (8.5-10.3) 02/20/19 05:28 Magnesium 1.7 mg/dL (1.7-2.8) 02/19/19 09:41 Total Bilirubin 0.9 mg/dL (0.2-1.0) 02/20/19 05:28 AST 17 IU/L (10-42) 02/20/19 05:28 ALT 10 IU/L (10-60) 02/20/19 05:28 Alkaline Phosphatase 61 IU/L (42-121) 02/20/19 05:28 Total Protein 5.6 g/dL (6.7-8.2) L 02/20/19 05:28 Albumin 3.1 g/dL (3.2-5.5) L 02/20/19 05:28 Globulin 2.5 g/dL (2.1-4.2) 02/20/19 05:28 Albumin/Globulin Ratio 1.2 (1.0-2.2) 02/20/19 05:28 Triglycerides 124 mg/dL (-149) 02/18/19 04:40 Cholesterol 174 mg/dL (-199) 02/18/19 04:40 LDL Cholesterol, Calc 93 mg/dL (-129) 02/18/19 04:40 VLDL Cholesterol 25 mg/dL 02/18/19 04:40 HDL Cholesterol 56 mg/dL (60-) L 02/18/19 04:40 LDL/HDL Ratio 1.7 (<4.4) 02/18/19 04:40 Cholesterol/HDL Ratio 3.1 (<4.4) 02/18/19 04:40 Lipase 20 U/L (22-51) L 02/17/19 14:00 Urine Color YELLOW 02/20/19 08:15 Urine Clarity HAZY (CLEAR) 02/20/19 08:15 Urine pH 6.0 PH (5.0-7.5) 02/20/19 08:15 Ur Specific [place] 1.010 (1.002-1.030) 02/20/19 08:15 Urine Protein NEGATIVE mg/dL (NEGATIVE) 02/20/19 08:15 Urine Glucose (UA) NEGATIVE mg/dL (NEGATIVE) 02/20/19 08:15 Urine Ketones NEGATIVE mg/dL (NEGATIVE) 02/20/19 08:15 Urine Occult Blood TRACE-LYSE (NEGATIVE) 02/20/19 08:15 Urine Nitrite NEGATIVE (NEGATIVE) 02/20/19 08:15 Urine Bilirubin NEGATIVE (NEGATIVE) 02/20/19 08:15 Urine Urobilinogen 0.2 (NORMAL) E.U./dL (NORMAL) 02/20/19 08:15 Ur Leukocyte Esterase NEGATIVE (NEGATIVE) 02/20/19 08:15 Urine RBC 0-5 /HPF (0-5) 02/20/19 08:15 Urine WBC 0-3 /HPF (0-5) 02/20/19 08:15 Ur Squamous Epith Cells FEW Squamous (<= Few) 02/20/19 08:15 Urine Bacteria Rare /HPF (None Seen) 02/20/19 08:15 Urine Culture Comments NOT INDICATED 02/20/19 08:15 Sepsis Event Note (H) - Evaluation Current Stage of Sepsis: Ruled out ABX Reporting Has patient been on IV antibiotics over the past 48 hours?: No
[2019-02-20 11:51] LABS: TROPONIN I < 0.04 ng/mL (<0.49)
--- NOTE | 2019-02-20 14:20 | PROVIDER PROGRESS NOTE ---
Subjective - Prog Note Date Prog Note Date: 02/20/19 - Subjective Pt reports feeling: Worse Subjective: pt report she feel worsen and warm, report her left upper abdominal pain. but pt denies cough, chest pain. she also denies nausea, vomiting. pt had PEG tube on yesterday. pt had significant elevated WBC, and temperature is at 37.6 now. Current Medications - Current Medications Current Medications: Active Medications Acetaminophen (Tylenol) 650 mg PO Q4HR PRN PRN Reason: Pain 1 to 4 Albuterol () 2.5 mg INH RTQ4H PRN PRN Reason: Wheezing Albuterol/Ipratropium (Duoneb) 3 ml INH Q4HR PRN PRN Reason: Wheezing Aspirin () 300 mg MD DAILY [facility] Last Admin: 02/20/19 10:53 Dose: 300 mg Atorvastatin Calcium (Lipitor) 40 mg PO QPM [facility] Last Admin: 02/19/19 21:04 Dose: Not Given Enoxaparin Sodium (Lovenox) 40 mg SUBQ DAILY [facility] Last Admin: 02/20/19 10:46 Dose: 40 mg Hydralazine HCl (Apresoline Inj) 10 mg IVP QID PRN PRN Reason: Hypertensive Emergency Acetaminophen (Ofirmev) 100 mls @ 400 mls/hr IV Q6HR PRN PRN Reason: PAIN Last Infusion: 02/20/19 11:12 Dose: Infused Piperacillin Sod/Tazobactam (Sod 3.375 gm/ Sodium Chloride) 100 mls @ 200 mls/hr IV Q6H [facility] Last Infusion: 02/20/19 11:32 Dose: Infused Sodium Chloride (Normal Saline 0.9%) 1,000 mls @ 83.333 mls/hr IV .Q12H [facility] Stop: 02/20/19 21:59 Last Admin: 02/20/19 10:48 Dose: 83.333 mls/hr Morphine Sulfate (Morphine (Carpuject)) 2 mg IVP Q2HR PRN PRN Reason: PAIN Last Admin: 02/20/19 10:47 Dose: 2 mg Multi-Ingredient Ointment (Zinc Oxide) 1 applic TOP PRN PRN PRN Reason: Skin Care Last Admin: 02/19/19 08:26 Dose: 1 applic Nicotine (Nicoderm) 1 patch TOP DAILY [facility] Last Admin: 02/20/19 10:47 Dose: 1 patch Nystatin (Mycostatin Cream) 1 applic TOP BID [facility] Last Admin: 02/20/19 10:48 Dose: 1 applic Ondansetron HCl (Zofran Inj) 4 mg IVP Q6HR PRN PRN Reason: Nausea / Vomiting Last Admin: 02/20/19 10:47 Dose: 4 mg Ondansetron HCl (Zofran Odt) 4 mg TL Q6HR PRN PRN Reason: Nausea / Vomiting Polyethylene Glycol (Miralax) 17 gm PO DAILY [facility] Last Admin: 02/20/19 07:55 Dose: Not Given Sodium Chloride (Normal Saline Flush 0.9%) 10 ml IVP PRN PRN PRN Reason: NEEDED PER PROVIDER ORDERS Last Admin: 02/20/19 02:29 Dose: 10 ml Sodium Chloride (Normal Saline Flush 0.9%) 10 ml IVP 0100,0900,1700 [facility] Last Admin: 02/20/19 10:48 Dose: 10 ml Objective - Vital Signs/Intake & Output Reviewed Vital Signs: Yes Vital Signs: Vital Signs x48h Temp Pulse Resp BP Pulse Ox 02/20/19 12:32 37.1 C 78 17 144/47 H 93 02/20/19 11:21 37.2 C 02/20/19 07:49 37.6 C H 74 19 158/78 H 93 Intake & Output: Intake & Output 02/17/19 02/18/19 02/19/19 02/20/19 23:59 23:59 23:59 23:59 Intake Total 2239.167 2978.333 1601.667 Output Total 450 550 Balance 8115.349 8613.333 1601.667 - Objective General Appearance: positive: No acute distress, Alert. negative: Lethargic Eyes Bilateral: positive: Normal inspection, PERRL, No lid inflammation, Conjunctivae nml ENT: positive: ENT inspection nml, Pharynx nml, No signs of dehydration. negative: Purulent nasal drainage, Pharyngeal erythema, Oral lesions Neck: positive: Nml inspection, Thyroid nml, No JVD, Trachea midline. negative: Thyromegaly, Lymphadenopathy (R), Lymphadenopathy (L), Stiff neck, Swelling/bruising, Tracheal deviation Respiratory: positive: Chest non-tender, No respiratory distress, Rhonchi. negative: Breath sounds nml, Wheezes, Rales Cardiovascular: positive: Regular rate & rhythm, No murmur, No gallop. negative: Irregularly irregular, Extrasystoles, Tachycardia, Bradycardia, JVD present, Systolic murmur, Diastolic murmur Peripheral Pulses: 2+ Radial (R), 2+ Radial (L), 2+ Dorsalis pedis (R), 2+ Dorsalis pedis (L) Abdomen: positive: Non-tender, No organomegaly, Nml bowel sounds, No distention. negative: Tenderness, Guarding, Rebound Back: positive: Nml inspection. negative: CVA tenderness (R), CVA tenderness (L) Skin: positive: Color nml, No rash, Warm, Dry. negative: Cyanosis, Diaphoresis, Pallor, Skin rash Extremities: positive: Non-tender, Nml appearance. negative: Full ROM, Calf tenderness, Joint swelling, Donald's sign/cords Neurologic/Psychiatric: positive: Weakness, Sensory loss, Facial droop, Slurred/abnml speech. negative: Motor nml, Sensation nml, Depressed mood/affect - Lab Results Fish Bones: 02/20/19 07:44 02/20/19 05:28 Other Labs: Lab Results x24hrs 02/20/19 02/20/19 02/20/19 Range/Units 11:24 08:15 07:44 WBC (4.8-10.8) x10^3/uL RBC (4.20-5.40) 10^6/uL Hgb (12.0-16.0) g/dL Hct (37.0-47.0) % MCV (81.0-99.0) fL MCH (27.0-31.0) pg MCHC (32.0-36.0) g/dL RDW (12.0-15.0) % Plt Count (130-450) 10^3/uL MPV (7.9-10.8) fL Neut # (Auto) (1.5-6.6) 10^3/uL Lymph # (Auto) (1.5-3.5) 10^3/uL [place] # (Auto) (0.0-1.0) 10^3/uL Eos # (Auto) (0.0-0.7) 10^3/uL Baso # (Auto) (0.0-0.1) 10^3/uL Absolute Nucleated RBC x10^3/uL Nucleated RBC % /100WBC Manual Slide Review WBC Morphology (NORMAL) Platelet Estimate (NORMAL) Platelet Morphology (NORMAL) RBC Morph Micro Appear (NORMAL) Sodium (135-145) mmol/L Potassium (3.5-5.0) mmol/L Chloride (101-111) mmol/L Carbon Dioxide (21-32) mmol/L Anion Gap (6-13) BUN (6-20) mg/dL Creatinine (0.4-1.0) mg/dL Estimated GFR (MDRD) (>89) Glucose (70-100) mg/dL Lactic Acid 0.8 (0.5-2.2) mmol/L Calcium (8.5-10.3) mg/dL Total Bilirubin (0.2-1.0) mg/dL AST (10-42) IU/L ALT (10-60) IU/L Alkaline Phosphatase (42-121) IU/L Troponin I < 0.04 (<0.49) ng/mL Troponin I High Sens 10.1 (2.3-14.8) pg/mL Total Protein (6.7-8.2) g/dL Albumin (3.2-5.5) g/dL Globulin (2.1-4.2) g/dL Albumin/Globulin Ratio (1.0-2.2) Urine Color YELLOW Urine Clarity HAZY (CLEAR) Urine pH 6.0 (5.0-7.5) PH Ur Specific [place] 1.010 (1.002-1.030) Urine Protein NEGATIVE (NEGATIVE) mg/dL Urine Glucose (UA) NEGATIVE (NEGATIVE) mg/dL Urine Ketones NEGATIVE (NEGATIVE) mg/dL Urine Occult Blood TRACE-LYSE (NEGATIVE) Urine Nitrite NEGATIVE (NEGATIVE) Urine Bilirubin NEGATIVE (NEGATIVE) Urine Urobilinogen 0.2 (NORMAL) (NORMAL) E.U./dL Ur Leukocyte Esterase NEGATIVE (NEGATIVE) Urine RBC 0-5 (0-5) /HPF Urine WBC 0-3 (0-5) /HPF Ur Squamous Epith Cells FEW Squamous (<= Few) Urine Bacteria Rare (None Seen) /HPF Urine Culture Comments NOT INDICATED 02/20/19 02/20/19 02/20/19 Range/Units 07:44 05:28 05:28 WBC 22.3 H 22.7 H (4.8-10.8) x10^3/uL RBC 4.28 4.15 L (4.20-5.40) 10^6/uL Hgb 12.7 12.0 (12.0-16.0) g/dL Hct 37.3 36.3 L (37.0-47.0) % MCV 87.1 87.5 (81.0-99.0) fL MCH 29.7 28.9 (27.0-31.0) pg MCHC 34.0 33.1 (32.0-36.0) g/dL RDW 13.9 13.8 (12.0-15.0) % Plt Count 265 245 (130-450) 10^3/uL MPV 11.2 H 11.3 H (7.9-10.8) fL Neut # (Auto) 19.1 H 20.0 H (1.5-6.6) 10^3/uL Lymph # (Auto) 1.8 1.3 L (1.5-3.5) 10^3/uL [place] # (Auto) 1.2 H 1.2 H (0.0-1.0) 10^3/uL Eos # (Auto) 0.0 0.0 (0.0-0.7) 10^3/uL Baso # (Auto) 0.1 0.0 (0.0-0.1) 10^3/uL Absolute Nucleated RBC 0.00 0.00 x10^3/uL Nucleated RBC % 0.0 0.0 /100WBC Manual Slide Review Indicated WBC Morphology 1+ SMUDGE CELLS (NORMAL) Platelet Estimate NORMAL (130-450,000) (NORMAL) Platelet Morphology 1+ LARGE PLATELETS (NORMAL) RBC Morph Micro Appear NORMAL APPEARANCE (NORMAL) Sodium 139 (135-145) mmol/L Potassium 3.8 (3.5-5.0) mmol/L Chloride 106 (101-111) mmol/L Carbon Dioxide 25 (21-32) mmol/L Anion Gap 8.0 (6-13) BUN 7 (6-20) mg/dL Creatinine 0.4 (0.4-1.0) mg/dL Estimated GFR (MDRD) 152 (>89) Glucose 153 H (70-100) mg/dL Lactic Acid (0.5-2.2) mmol/L Calcium 8.5 (8.5-10.3) mg/dL Total Bilirubin 0.9 (0.2-1.0) mg/dL AST 17 (10-42) IU/L ALT 10 (10-60) IU/L Alkaline Phosphatase 61 (42-121) IU/L Troponin I (<0.49) ng/mL Troponin I High Sens (2.3-14.8) pg/mL Total Protein 5.6 L (6.7-8.2) g/dL Albumin 3.1 L (3.2-5.5) g/dL Globulin 2.5 (2.1-4.2) g/dL Albumin/Globulin Ratio 1.2 (1.0-2.2) Urine Color Urine Clarity (CLEAR) Urine pH (5.0-7.5) PH Ur Specific [place] (1.002-1.030) Urine Protein (NEGATIVE) mg/dL Urine Glucose (UA) (NEGATIVE) mg/dL Urine Ketones (NEGATIVE) mg/dL Urine Occult Blood (NEGATIVE) Urine Nitrite (NEGATIVE) Urine Bilirubin (NEGATIVE) Urine Urobilinogen (NORMAL) E.U./dL Ur Leukocyte Esterase (NEGATIVE) Urine RBC (0-5) /HPF Urine WBC (0-5) /HPF Ur Squamous Epith Cells (<= Few) Urine Bacteria (None Seen) /HPF Urine Culture Comments ABX Reporting Has patient been on IV antibiotics over the past 48 hours?: Yes Sepsis Event Note (H) - Evaluation Current Stage of Sepsis: Sepsis Possible source of Sepsis: positive: Pulmonary, GI tract/intra-abdominal - Sepsis Criteria Sepsis Criteria: Recorded Temperature greater than 38.3C or Less than 36C, WBC count greater than 12,000 or less than 4000 Assessment/Plan - Problem List (1) Cerebrovascular accident (CVA) Impression: 02/20 pt has slight improved on the strength on left hand and lower extremity, and speech but pt state has difficult for swallow. pt is status post of PEG, done on yesterday. Per surgeon recommended pt can start PEG feeding today. consulted with dietitian, will followup her recommend for PEG feeding. pt complain of abdominal pain, will have CT of abdomen, and will start PEG feed after review of CT of abdomen. continue PT/OT advise pt's DPOA for pt to followup vascular surgeon for carotid stenosis Aspiration precaution continue Aspirin and statin pt still present profound left side weakness, with left facial droop, dysphagia. CTA of neck reveals significant carotid stenosis. Due to pt has significant oral secretion, and pt's dysphagia, pt had cough when she was flat. MRI was hold for prevention of aspiration. CTA reveals possible cause, clinically pt present S troke and left side profound weakness with left facial droop, dysphagia, and slurred speech which is improving. continue Aspirin SP, will hasve statin after pt has PEG continue PT/OT. Pt failed ST evaluation and treatment third time, surgeon was called for PEG, pt's DPOA decline to have NG tube. ECHO reveals unremarkable. advise pt's DPOA for pt to followup vascular surgeon for carotid stenosis Aspiration precaution consult with station manager for PEG feed (2) lymphocytosis 02/20 pt's WBC is increased to 22 from 10, and temperature increase to 37.6. pt report warm and felt not good. she report abdominal pain at left upper abdomen. pt was status post PEG tube on yesterday. CT of abdomen, will followup blood culture start with Zosyn continue IVF, and pain control (3) abdominal pain 02/20 she report abdominal pain at left upper abdomen. pt was status post PEG tube on yesterday. pt denies N/N CT of abdomen, will followup pain control (4) dysphagia 02/20 will start PEG food after CT of abdomen. consulted with GI surgeon and dietitian for PEG feeding pt still present significant dysphagia. ST reveals pt for three times but pt is not improved yet. consult with surgeon. pt's DPOA decline NG tube for pt consult with station manager continue NPO continue D5 1/2 NS with 40 meq K continue Aspiration precaution (5) Carotid stenosis, bilateral Conclusion/Plan: CTA of neck reveals severe stenosis >70% bilaterally Pt's DPOA was advised for pt to have outpatient vascular surgeon consult Started ASA as per neurology recs (6) DNR (do not resuscitate) Conclusion/Plan: Patient request DNR (7) Tobacco use Conclusion/Plan: pt is currently smoking tobacco nowl. low dose nicoderm was ordered for pt to avoid nicotine withdrawal PRN bronchodilator (8) Hypertension Conclusion/Plan: pt is Permissive HTN next 48-96 hrs and even giving fluid this pm Reported as outpatient Dx, not on meds continue vital monitor add PRN hydralazine for HTN (9) Hypoglycemia resolved now. continue D5 1/2 NS until pt has PEG feed Qualifiers: CVA mechanism: unspecified Qualified Code(s): I63.9 - Cerebral infarction, unspecified
--- NOTE | 2019-02-20 14:45 | CT Report ---
Reason: abdominal pain, fever Procedure Date: 02/20/2019 Accession Number: [id number] / [id number] Procedure: CT - Abdomen/Pelvis W CPT Code: FULL RESULT: EXAM: CT ABDOMEN AND PELVIS EXAM DATE: 02/20/2019 12:45 PM. CLINICAL HISTORY: Abdominal pain, fever after gastric tube insertion. COMPARISONS: CT abdomen/pelvis 02/22/2012. TECHNIQUE: Routine helical CT imaging was performed through the abdomen and pelvis. IV contrast: OPTI 320 90ML. Enteric contrast: No. Reconstructions: Coronal and sagittal. In accordance with CT protocol optimization, one or more of the following dose reduction techniques were utilized for this exam: automated exposure control, adjustment of mA and/or KV based on patient size, or use of iterative reconstructive technique. FINDINGS: Lung Bases: Small right-sided Bochdalek hernia containing a portion of the posterior right hepatic lobe. Mild dependent basal atelectasis or scarring. Trace bilateral pleural effusions. Liver: Otherwise unremarkable. No focal liver lesion. Gallbladder/Bile Ducts: Probable fundal adenomyomatosis. Otherwise unremarkable. No ductal enlargement. Spleen: Normal. Pancreas: Normal. Adrenal Glands: Normal. Kidneys: Horseshoe kidney. Probable bilateral lower pole moiety cortical cysts. No hydronephrosis or convincing calculi. No convincing solid mass. Peritoneal Cavity/Bowel: There is evidence of partial sigmoid resection with left lower quadrant colostomy and Cristina pouch. There is a parastomal hernia with indwelling loops of small bowel. There is an additional midline ventral hernia containing a loop of small bowel. No evidence of obstruction or inflammation at this time. A percutaneous gastrostomy tube is present, terminating in the body of the stomach. There is small volume pneumoperitoneum which may relate to recent instrumentation. There is nonspecific trace free peritoneal fluid seen along the left paracolic gutter and in the pelvis. No organized fluid collection. There is mild hazy left upper quadrant, left abdominal omental/ mesenteric stranding, may be inflammatory. Pelvic Organs: Probable calcified uterine fibroid. Adnexal structures unremarkable. Urinary bladder unremarkable. Vasculature: No aneurysm. Scattered aortoiliac atheromatous calcifications. Bones: Multilevel lumbar degeneration. Chronic appearing mild superior endplate depression at L4, probably stable from prior. Other: None. IMPRESSION: 1. Gastrostomy tube terminates in the body of the stomach. 2. Small volume pneumoperitoneum. Nonspecific trace free peritoneal fluid without organized fluid collection. Mild hazy left abdominal omental/mesenteric stranding. These findings may all be related to recent instrumentation. Peritonitis is not entirely excluded. 3. Trace bilateral pleural effusions. 4. Small bowel containing left lower quadrant parastomal and midline ventral hernias without evidence of obstruction or inflammation at this time. 5. Nodular density at the right lung base most likely represents right-sided Bochdalek hernia with right hepatic lobe involvement. 6. Other findings as noted above. [facility] The call report notification system was initiated by Dr. Sebastian Enriquez at 02:34 PM on 02/20/2019. The above call report findings were discussed with Sanchez by Dr. Sebastian Enriquez at 02:44 PM on 02/20/2019.
[2019-02-20] MEDS: ATORVASTATIN 40 MG TABLET PO SCH (20:36)
[2019-02-21] MEDS: SODIUM CHLORIDE FLUSH 0.9% 10 ML SYRINGE IVP SCH ×3 (00:58→11:38)
[2019-02-21] MEDS: PIPERACILLIN/TAZOBACTAM 3.375 GM in SODIUM CHLORIDE 0.9% MINIBAG 100 ML IV SCH ×4 (04:27→21:43)
[2019-02-21] MEDS: ZINC OXIDE 20% OINT 28.35 GM TUBE TOP PRN ×2 (04:36→09:20)
[2019-02-21] MEDS: ACETAMINOPHEN 1,000 MG/100 ML 100 ML IV PRN ×3 (05:33→22:48)
[2019-02-21 06:23] LABS: BASOPHILS % (AUTO) 0.3 %; EOSINOPHILS # (AUTO) 0.3 10^3/uL (0.0-0.7); EOSINOPHILS % (AUTO) 2.9 %; HGB - HEMOGLOBIN 11.7 g/dL (12.0-16.0); LYMPHOCYTES # (AUTO) 1.5 10^3/uL (1.5-3.5); LYMPHOCYTES % (AUTO) 12.3 %; MEAN CORPUSCULAR HGB CONC 32.3 g/dL (32.0-36.0); MEAN CORPUSCULAR VOLUME 89.8 fL (81.0-99.0); MEAN PLATELET VOLUME 11.8 fL (7.9-10.8); MONOCYTES # (AUTO) 1.2 10^3/uL (0.0-1.0); MONOCYTES % (AUTO) 9.7 %; NEUTROPHILS # (AUTO) 8.9 10^3/uL (1.5-6.6); NEUTROPHILS % (AUTO) 74.5 %; PLT - PLATELET COUNT 224 10^3/uL (130-450); RED BLOOD COUNT 4.03 10^6/uL (4.20-5.40); RED CELL DISTRIBUTION WIDTH 14.1 % (12.0-15.0); WHITE BLOOD COUNT 11.9 x10^3/uL (4.8-10.8)
[2019-02-21 06:34] LABS: ALBUMIN 2.7 g/dL (3.2-5.5); ALBUMIN/GLOBULIN RATIO 1.1 (1.0-2.2); BILIRUBIN,TOTAL 0.7 mg/dL (0.2-1.0); CALCIUM 8.6 mg/dL (8.5-10.3); CREATININE 0.5 mg/dL (0.4-1.0); TOTAL PROTEIN 5.1 g/dL (6.7-8.2)
[2019-02-21] MEDS: NICOTINE 7 MG PATCH TOP SCH (09:17)
[2019-02-21] MEDS: ENOXAPARIN 40 MG/0.4 ML SYRINGE SUBQ SCH (09:17)
[2019-02-21] MEDS: ASPIRIN 300 MG SUPP PR SCH (09:17)
[2019-02-21] MEDS: SODIUM CHLORIDE FLUSH 0.9% 10 ML SYRINGE IVP PRN ×3 (09:18→15:21)
[2019-02-21] MEDS: ONDANSETRON 4 MG/2 ML VIAL IVP PRN (09:18)
[2019-02-21] MEDS: NYSTATIN CREAM 15 GM TUBE TOP SCH ×2 (09:20→20:45)
[2019-02-21] MEDS: POLYETHYLENE GLYCOL 3350 17 GM PACKET PO SCH (09:21)
--- NOTE | 2019-02-21 09:54 | PROVIDER PROGRESS NOTE ---
Assessment/Plan - Problem List (1) Leukocytosis Qualifiers: Leukocytosis type: unspecified Qualified Code(s): D72.829 - Elevated white blood cell count, unspecified Assessment/Plan: Resolving, etiology unclear; no evidence of intra abdominal sepsis or complication from PEG tube placement 2 days ago; rec: continue empiric course of antibiotics pending final culture results and clinical response. (2) Dysphagia due to recent cerebrovascular accident (CVA) Assessment/Plan: PO day 2 s/p PEG insertion; clinically doing well with benign abdomen and tolerating tube feeding well so far; rec: continue tube feeding as tolerated. (3) Cerebrovascular accident (CVA) Qualifiers: CVA mechanism: unspecified Qualified Code(s): I63.9 - Cerebral infarction, unspecified - Current Meds Current Meds: Current Medications Generic Name Dose Route Start Last Admin Trade Name Freq PRN Reason Stop Dose Admin Aspirin 300 mg 02/18/19 11:00 02/21/19 09:17 [place] 300 mg DAILY ERIC Administration Atorvastatin Calcium 40 mg 02/17/19 21:00 02/20/19 20:36 Lipitor PO 40 mg QPM ERIC Administration Enoxaparin Sodium 40 mg 02/18/19 09:00 02/21/19 09:17 Lovenox SUBQ 40 mg DAILY ERIC Administration Acetaminophen 100 mls @ 400 mls/hr 02/17/19 22:36 02/21/19 05:48 Ofirmev IV Infused Q6HR PRN Infusion PAIN Piperacillin Sod/Tazobactam 100 mls @ 200 mls/hr 02/20/19 10:00 02/21/19 04:57 Sod 3.375 gm/ Sodium Chloride IV Infused Q6H ERIC Infusion Morphine Sulfate 2 mg 02/19/19 23:45 02/20/19 10:47 Morphine (Carpuject) IVP 2 mg Q2HR PRN Administration PAIN Multi-Ingredient Ointment 1 applic 02/17/19 19:20 02/21/19 09:20 Zinc Oxide TOP 1 applic PRN PRN Administration Skin Care Nicotine 1 patch 02/18/19 09:00 02/21/19 09:17 Nicoderm TOP 1 patch DAILY ERIC Administration Nystatin 1 applic 02/17/19 22:00 02/21/19 09:20 Mycostatin Cream TOP 1 applic BID ERIC Administration Ondansetron HCl 4 mg 02/17/19 16:41 02/21/19 09:18 Zofran Inj IVP 4 mg Q6HR PRN Administration Nausea / Vomiting Polyethylene Glycol 17 gm 02/18/19 09:00 02/21/19 09:21 Miralax PO 17 gm DAILY ERIC Administration Sodium Chloride 10 ml 02/17/19 16:41 02/21/19 09:18 Normal Saline Flush 0.9% IVP 10 ml PRN PRN Administration NEEDED PER PROVIDER ORDERS Sodium Chloride 10 ml 02/17/19 17:00 02/21/19 04:28 Normal Saline Flush 0.9% IVP 10 ml 0100,0900,1700 ERIC Administration - Lab Result Fish Bone Diagrams: 02/21/19 06:10 02/21/19 06:10 - Diagnostic Imaging Results Diagnostic Imaging Results: Final report reviewed, Discussed with radiologist, Read independently Diagnostic Imaging Results Comments: CT abd/pelvis yest showed G tube in good position, tiny amounts of free air in upper abd c/w recent PEG procedure; no significant free fluid; no evidence for acute abdominal process. - Additional Planning Condition/Complexity: Improved Plan Discussed with:: Other (hospitalist) Time Spent: 15-30 minutes Subjective - Subjective Patient Reports: Nausea, Other (c/o not feeling well and some nausea; notes mild discomfort at G tube site.) Objective Vital Signs: Vital Signs - 24 hr 02/20/19 02/20/19 02/20/19 11:21 12:32 15:53 Temperature 37.2 C 37.1 C 36.4 C L Heart Rate [ 78 65 Brachial] Respiratory 17 18 Rate Blood Pressure 148/50 H [Left Brachial artery] Blood Pressure 144/47 H [Right Brachial artery] O2 Saturation 93 95 02/20/19 02/20/19 02/21/19 20:00 21:45 01:00 Temperature 36.4 C L 36.7 C Heart Rate [ 78 81 64 Brachial] Respiratory 18 16 Rate Blood Pressure [Left Brachial artery] Blood Pressure 156/42 H 145/55 H 131/38 H [Right Brachial artery] O2 Saturation 94 94 02/21/19 02/21/19 05:00 08:18 Temperature 36.7 C 36.5 C Heart Rate [ 68 77 Brachial] Respiratory 18 20 Rate Blood Pressure [Left Brachial artery] Blood Pressure 139/41 H 148/56 H [Right Brachial artery] O2 Saturation 92 94 Oxygen O2 Source Room air I&O (Last 24 Hrs): Intake and Output Totals x24h 02/19/19 02/20/19 02/21/19 23:59 23:59 23:59 Intake Total 2978.333 1986.039 3688 Output Total 550 350 220 Balance 2428.333 5064.688 5818 General: Cooperative, No acute distress, Other (lethargic) Abdomen: Normal bowel sounds, Soft, No tenderness, No hepatospenomegaly, No masses - Results Results: Laboratory Results WBC 11.9 x10^3/uL (4.8-10.8) H 02/21/19 06:10 RBC 4.03 10^6/uL (4.20-5.40) L 02/21/19 06:10 Hgb 11.7 g/dL (12.0-16.0) L 02/21/19 06:10 Hct 36.2 % (37.0-47.0) L 02/21/19 06:10 MCV 89.8 fL (81.0-99.0) 02/21/19 06:10 MCH 29.0 pg (27.0-31.0) 02/21/19 06:10 MCHC 32.3 g/dL (32.0-36.0) 02/21/19 06:10 RDW 14.1 % (12.0-15.0) 02/21/19 06:10 Plt Count 224 10^3/uL (130-450) 02/21/19 06:10 MPV 11.8 fL (7.9-10.8) H 02/21/19 06:10 Neut # (Auto) 8.9 10^3/uL (1.5-6.6) H 02/21/19 06:10 Lymph # (Auto) 1.5 10^3/uL (1.5-3.5) 02/21/19 06:10 [place] # (Auto) 1.2 10^3/uL (0.0-1.0) H 02/21/19 06:10 Eos # (Auto) 0.3 10^3/uL (0.0-0.7) 02/21/19 06:10 Baso # (Auto) 0.0 10^3/uL (0.0-0.1) 02/21/19 06:10 Absolute Nucleated RBC 0.00 x10^3/uL 02/21/19 06:10 Nucleated RBC % 0.0 /100WBC 02/21/19 06:10 Manual Slide Review Indicated 02/20/19 07:44 WBC Morphology 1+ SMUDGE CELLS (NORMAL) 02/20/19 07:44 Platelet Estimate NORMAL (130-450,000) (NORMAL) 02/20/19 07:44 Platelet Morphology 1+ LARGE PLATELETS (NORMAL) 02/20/19 07:44 RBC Morph Micro Appear NORMAL APPEARANCE (NORMAL) 02/20/19 07:44 PT 12.3 secs (9.9-12.6) 02/17/19 14:00 INR 1.1 (0.8-1.2) 02/17/19 14:00 Sodium 141 mmol/L (135-145) 02/21/19 06:10 Potassium 3.6 mmol/L (3.5-5.0) 02/21/19 06:10 Chloride 104 mmol/L (101-111) 02/21/19 06:10 Carbon Dioxide 26 mmol/L (21-32) 02/21/19 06:10 Anion Gap 11.0 (6-13) 02/21/19 06:10 BUN 10 mg/dL (6-20) 02/21/19 06:10 Creatinine 0.5 mg/dL (0.4-1.0) 02/21/19 06:10 Estimated GFR (MDRD) 118 (>89) 02/21/19 06:10 Glucose 126 mg/dL (70-100) H 02/21/19 06:10 Lactic Acid 0.8 mmol/L (0.5-2.2) 02/20/19 07:44 Calcium 8.6 mg/dL (8.5-10.3) 02/21/19 06:10 Magnesium 1.7 mg/dL (1.7-2.8) 02/19/19 09:41 Total Bilirubin 0.7 mg/dL (0.2-1.0) 02/21/19 06:10 AST 13 IU/L (10-42) 02/21/19 06:10 ALT 10 IU/L (10-60) 02/21/19 06:10 Alkaline Phosphatase 58 IU/L (42-121) 02/21/19 06:10 Troponin I < 0.04 ng/mL (<0.49) 02/20/19 11:24 Troponin I High Sens 10.1 pg/mL (2.3-14.8) 02/20/19 11:24 Total Protein 5.1 g/dL (6.7-8.2) L 02/21/19 06:10 Albumin 2.7 g/dL (3.2-5.5) L 02/21/19 06:10 Globulin 2.4 g/dL (2.1-4.2) 02/21/19 06:10 Albumin/Globulin Ratio 1.1 (1.0-2.2) 02/21/19 06:10 Triglycerides 124 mg/dL (-149) 02/18/19 04:40 Cholesterol 174 mg/dL (-199) 02/18/19 04:40 LDL Cholesterol, Calc 93 mg/dL (-129) 02/18/19 04:40 VLDL Cholesterol 25 mg/dL 02/18/19 04:40 HDL Cholesterol 56 mg/dL (60-) L 02/18/19 04:40 LDL/HDL Ratio 1.7 (<4.4) 02/18/19 04:40 Cholesterol/HDL Ratio 3.1 (<4.4) 02/18/19 04:40 Lipase 20 U/L (22-51) L 02/17/19 14:00 Urine Color YELLOW 02/20/19 08:15 Urine Clarity HAZY (CLEAR) 02/20/19 08:15 Urine pH 6.0 PH (5.0-7.5) 02/20/19 08:15 Ur Specific [place] 1.010 (1.002-1.030) 02/20/19 08:15 Urine Protein NEGATIVE mg/dL (NEGATIVE) 02/20/19 08:15 Urine Glucose (UA) NEGATIVE mg/dL (NEGATIVE) 02/20/19 08:15 Urine Ketones NEGATIVE mg/dL (NEGATIVE) 02/20/19 08:15 Urine Occult Blood TRACE-LYSE (NEGATIVE) 02/20/19 08:15 Urine Nitrite NEGATIVE (NEGATIVE) 02/20/19 08:15 Urine Bilirubin NEGATIVE (NEGATIVE) 02/20/19 08:15 Urine Urobilinogen 0.2 (NORMAL) E.U./dL (NORMAL) 02/20/19 08:15 Ur Leukocyte Esterase NEGATIVE (NEGATIVE) 02/20/19 08:15 Urine RBC 0-5 /HPF (0-5) 02/20/19 08:15 Urine WBC 0-3 /HPF (0-5) 02/20/19 08:15 Ur Squamous Epith Cells FEW Squamous (<= Few) 02/20/19 08:15 Urine Bacteria Rare /HPF (None Seen) 02/20/19 08:15 Urine Culture Comments NOT INDICATED 02/20/19 08:15 Sepsis Event Note (H) - Evaluation Current Stage of Sepsis: Sepsis Possible source of Sepsis: positive: Pulmonary, GI tract/intra-abdominal - Sepsis Criteria Sepsis Criteria: Recorded Temperature greater than 38.3C or Less than 36C, WBC count greater than 12,000 or less than 4000 ABX Reporting Has patient been on IV antibiotics over the past 48 hours?: No
--- NOTE | 2019-02-21 12:23 | PROVIDER PROGRESS NOTE ---
Subjective - Prog Note Date Prog Note Date: 02/21/19 - Subjective Pt reports feeling: Improved Subjective: pt report some nausea but no vomiting today. Her abdominal pain was controlled. pt appeared pt tolerated the tube feed. pt denies chest pain, fever, chill, shortness of breath. Current Medications - Current Medications Current Medications: Active Medications Acetaminophen (Tylenol) 650 mg PO Q4HR PRN PRN Reason: Pain 1 to 4 Albuterol () 2.5 mg INH RTQ4H PRN PRN Reason: Wheezing Albuterol/Ipratropium (Duoneb) 3 ml INH Q4HR PRN PRN Reason: Wheezing Aspirin () 300 mg [place] DAILY [facility] Last Admin: 02/21/19 09:17 Dose: 300 mg Atorvastatin Calcium (Lipitor) 40 mg PO QPM [facility] Last Admin: 02/20/19 20:36 Dose: 40 mg Enoxaparin Sodium (Lovenox) 40 mg SUBQ DAILY [facility] Last Admin: 02/21/19 09:17 Dose: 40 mg Hydralazine HCl (Apresoline Inj) 10 mg IVP QID PRN PRN Reason: Hypertensive Emergency Acetaminophen (Ofirmev) 100 mls @ 400 mls/hr IV Q6HR PRN PRN Reason: PAIN Last Infusion: 02/21/19 05:48 Dose: Infused Piperacillin Sod/Tazobactam (Sod 3.375 gm/ Sodium Chloride) 100 mls @ 200 mls/hr IV Q6H [facility] Last Infusion: 02/21/19 12:18 Dose: Infused Morphine Sulfate (Morphine (Carpuject)) 2 mg IVP Q2HR PRN PRN Reason: PAIN Last Admin: 02/20/19 10:47 Dose: 2 mg Multi-Ingredient Ointment (Zinc Oxide) 1 applic TOP PRN PRN PRN Reason: Skin Care Last Admin: 02/21/19 09:20 Dose: 1 applic Nicotine (Nicoderm) 1 patch TOP DAILY [facility] Last Admin: 02/21/19 09:17 Dose: 1 patch Nystatin (Mycostatin Cream) 1 applic TOP BID [facility] Last Admin: 02/21/19 09:20 Dose: 1 applic Ondansetron HCl (Zofran Inj) 4 mg IVP Q6HR PRN PRN Reason: Nausea / Vomiting Last Admin: 02/21/19 09:18 Dose: 4 mg Ondansetron HCl (Zofran Odt) 4 mg TL Q6HR PRN PRN Reason: Nausea / Vomiting Polyethylene Glycol (Miralax) 17 gm PO DAILY [facility] Last Admin: 02/21/19 09:21 Dose: 17 gm Sodium Chloride (Normal Saline Flush 0.9%) 10 ml IVP PRN PRN PRN Reason: NEEDED PER PROVIDER ORDERS Last Admin: 02/21/19 12:18 Dose: 10 ml Sodium Chloride (Normal Saline Flush 0.9%) 10 ml IVP 0100,0900,1700 [facility] Last Admin: 02/21/19 11:38 Dose: 10 ml Objective - Vital Signs/Intake & Output Vital Signs: Vital Signs x48h Temp Pulse Resp BP Pulse Ox 02/21/19 12:01 36.6 C 64 15 149/50 H 96 02/21/19 08:18 36.5 C 77 20 148/56 H 94 02/21/19 05:00 36.7 C 68 18 139/41 H 92 Intake & Output: Intake & Output 02/18/19 02/19/19 02/20/19 02/21/19 23:59 23:59 23:59 23:59 Intake Total 2239.167 2978.333 8642.852 2154 Output Total 450 550 350 220 Balance 0827.589 8782.333 0123.039 5652 - Objective General Appearance: positive: No acute distress, Alert. negative: Lethargic Eyes Bilateral: positive: Normal inspection, PERRL, No lid inflammation, Conjunctivae nml ENT: positive: ENT inspection nml, Pharynx nml, No signs of dehydration. negative: Purulent nasal drainage, Pharyngeal erythema, Oral lesions Neck: positive: Nml inspection, Thyroid nml, No JVD, Trachea midline. negative: Thyromegaly, Lymphadenopathy (R), Lymphadenopathy (L), Stiff neck, Swelling/bruising, Tracheal deviation Respiratory: positive: Chest non-tender, No respiratory distress, Breath sounds nml. negative: Wheezes, Rales, Rhonchi Cardiovascular: positive: Regular rate & rhythm, No murmur, No gallop. negative: Irregularly irregular, Extrasystoles, Tachycardia, Bradycardia, JVD present, Systolic murmur, Diastolic murmur Peripheral Pulses: 2+ Radial (R), 2+ Radial (L), 2+ Dorsalis pedis (R), 2+ Dorsalis pedis (L) Abdomen: positive: Non-tender, No organomegaly, No distention, Other (abdomen is soft, slight slow bowel sound). negative: Tenderness, Guarding, Rebound Back: positive: Nml inspection. negative: CVA tenderness (R), CVA tenderness (L) Skin: positive: Color nml, No rash, Warm, Dry. negative: Cyanosis, Diaphoresis, Pallor Extremities: positive: Non-tender, Nml appearance. negative: Full ROM, Calf tenderness, Joint swelling, Donald's sign/cords Neurologic/Psychiatric: positive: Oriented x3, Mood/affect nml, Weakness, Sensory loss, Facial droop, Slurred/abnml speech. negative: Motor nml, Sensation nml, Depressed mood/affect - Lab Results Fish Bones: 02/21/19 06:10 02/21/19 06:10 Other Labs: Lab Results x24hrs 02/21/19 02/21/19 Range/Units 06:10 06:10 WBC 11.9 H (4.8-10.8) x10^3/uL RBC 4.03 L (4.20-5.40) 10^6/uL Hgb 11.7 L (12.0-16.0) g/dL Hct 36.2 L (37.0-47.0) % MCV 89.8 (81.0-99.0) fL MCH 29.0 (27.0-31.0) pg MCHC 32.3 (32.0-36.0) g/dL RDW 14.1 (12.0-15.0) % Plt Count 224 (130-450) 10^3/uL MPV 11.8 H (7.9-10.8) fL Neut # (Auto) 8.9 H (1.5-6.6) 10^3/uL Lymph # (Auto) 1.5 (1.5-3.5) 10^3/uL [place] # (Auto) 1.2 H (0.0-1.0) 10^3/uL Eos # (Auto) 0.3 (0.0-0.7) 10^3/uL Baso # (Auto) 0.0 (0.0-0.1) 10^3/uL Absolute Nucleated RBC 0.00 x10^3/uL Nucleated RBC % 0.0 /100WBC Sodium 141 (135-145) mmol/L Potassium 3.6 (3.5-5.0) mmol/L Chloride 104 (101-111) mmol/L Carbon Dioxide 26 (21-32) mmol/L Anion Gap 11.0 (6-13) BUN 10 (6-20) mg/dL Creatinine 0.5 (0.4-1.0) mg/dL Estimated GFR (MDRD) 118 (>89) Glucose 126 H (70-100) mg/dL Calcium 8.6 (8.5-10.3) mg/dL Total Bilirubin 0.7 (0.2-1.0) mg/dL AST 13 (10-42) IU/L ALT 10 (10-60) IU/L Alkaline Phosphatase 58 (42-121) IU/L Total Protein 5.1 L (6.7-8.2) g/dL Albumin 2.7 L (3.2-5.5) g/dL Globulin 2.4 (2.1-4.2) g/dL Albumin/Globulin Ratio 1.1 (1.0-2.2) ABX Reporting Has patient been on IV antibiotics over the past 48 hours?: Yes Sepsis Event Note (H) - Evaluation Current Stage of Sepsis: Sepsis Possible source of Sepsis: positive: Pulmonary, GI tract/intra-abdominal - Sepsis Criteria Sepsis Criteria: Recorded Temperature greater than 38.3C or Less than 36C, WBC count greater than 12,000 or less than 4000 Assessment/Plan - Problem List (1) Cerebrovascular accident (CVA) Impression: 02/21 pt has left side paralyzed from stroke, slowly improved continue Aspirin and Statin continue PT/OT, pt was recommended to inpt for SNF by PT/OT Aspiration precaution advise pt's DPOA, followup vascular surgeon for carotid stenosis 02/20 pt has slight improved on the strength on left hand and lower extremity, and speech but pt state has difficult for swallow. pt is status post of PEG, done on yesterday. Per surgeon recommended pt can start PEG feeding today. consulted with dietitian, will followup her recommend for PEG feeding. pt complain of abdominal pain, will have CT of abdomen, and will start PEG feed after review of CT of abdomen. continue PT/OT advise pt's DPOA for pt to followup vascular surgeon for carotid stenosis Aspiration precaution continue Aspirin and statin pt still present profound left side weakness, with left facial droop, dysphagia. CTA of neck reveals significant carotid stenosis. Due to pt has significant oral secretion, and pt's dysphagia, pt had cough when she was flat. MRI was hold for prevention of aspiration. CTA reveals possible cause, clinically pt present Stroke and left side profound weakness with left facial droop, dysphagia, and slurred speech which is improving. continue Aspirin SP, will hasve statin after pt has PEG continue PT/OT. Pt failed ST evaluation and treatment third time, surgeon was called for PEG, pt's DPOA decline to have NG tube. ECHO reveals unremarkable. advise pt's DPOA for pt to followup vascular surgeon for carotid stenosis Aspiration precaution consult with letterpress printing machinist for PEG feed (2) lymphocytosis 02/21 significant improved lymphocytosis, today WBC is 11.9 from yesterday 22.3. pt report her abdominal pain is controlled. Unclear the etiology continue Zosyn now, blood culture is negative for bacteremia preliminary 02/20 pt's WBC is increased to 22 from 10, and temperature increase to 37.6. pt report warm and felt not good. she report abdominal pain at left upper abdomen. pt was status post PEG tube on yesterday. CT of abdomen, will followup blood culture start with Zosyn continue IVF, and pain control (3) abdominal pain 02/21 improved and stable. pt report her abdominal pain is controlled pt complain of some nausea but without vomiting, unknown etiology, possible pt has a few days without any oral intake, now begin tube feeding. start on protonix Zofran PRN 02/20 she report abdominal pain at left upper abdomen. pt was status post PEG tube on yesterday. pt denies N/N CT of abdomen, will followup pain control (4) tube feed due to dysphagia 02/21 pt appeared tolerate the tube feeding, followup surgeon and dietitian recommendation, continue PEG feeding 02/20 will start PEG food after CT of abdomen. consulted with GI surgeon and dietitian for PEG feeding pt still present significant dysphagia. ST reveals pt for three times but pt is not improved yet. consult with surgeon. pt's DPOA decline NG tube for pt consult with letterpress printing machinist continue NPO continue D5 1/2 NS with 40 meq K continue Aspiration precaution (5) Carotid stenosis, bilateral Conclusion/Plan: CTA of neck reveals severe stenosis >70% bilaterally Pt's DPOA was advised for pt to have outpatient vascular surgeon consult Started ASA as per neurology recs (6) DNR (do not resuscitate) Conclusion/Plan: Patient request DNR (7) Tobacco use Conclusion/Plan: pt is currently smoking tobacco nowl. low dose nicoderm was ordered for pt to avoid nicotine withdrawal PRN bronchodilator (8) Hypertension Conclusion/Plan: pt is Permissive HTN next 48-96 hrs and even giving fluid this pm Reported as outpatient Dx, not on meds continue vital monitor add PRN hydralazine for HTN (9) Hypoglycemia resolved now. continue D5 1/2 NS until pt has PEG feed Qualifiers: Qualifiers: CVA mechanism: unspecified Qualified Code(s): I63.9 - Cerebral infarction, unspecified
[2019-02-21] MEDS ORDERED: PANTOPRAZOLE 40 MG TABLET PO SCH (13:00)
--- NOTE | 2019-02-21 15:32 | ADVANCE CARE PLANNING NOTE ---
Advance Care Planning - Planning Encounter Date: 02/21/19 Time: 15:30 Purpose: advanced care plan for pt Parties in Attendance: pt and me Decisional Capacity of the Patient: pt is alert and oriented person, place but not time. - Diagnosis for Encounter (1) Cerebrovascular accident (CVA) Qualifiers: CVA mechanism: unspecified Qualified Code(s): I63.9 - Cerebral infarction, unspecified - Encounter Subjective/Patient's Story: pt can speak now although pt's speech still has some slurred and slow, which was caused by recent major stroke. pt expressed her frustration for her illness, and after a few days, she is quite accepting the new changing, " I am old, it could be happened like this way." Now her code status is DNR, she agreed to have this code status. she state her grandson loved her very much. He is her DPOA. In this stage, she will keep DNR status, will consider advanced care such as palliative and hospice care if her medical condition continue deteriorated. Objective/Medical Story: pt report she is quite healthy before. she felt very frustrated by this major stroke at the first place. now she is accepting the change. she require PEG feeding now. Her speech is some improved but her weakness and left side paralyzed had limited improvement now. She was recommended by PT/OT for inpt rehab. she report she is willing to quit her cigarette smoking.. Goals of Care: quality life and advanced care Plan: continue DNR code status, will consider advanced care, palliative or hospice care if her medical condition became deteriorated. Code Status: Do Not Attempt Resuscitation Time spent on advance care plannin
[2019-02-21] MEDS: ATORVASTATIN 40 MG TABLET PO SCH (20:44)
[2019-02-22] MEDS: SODIUM CHLORIDE FLUSH 0.9% 10 ML SYRINGE IVP SCH ×4 (00:49→08:43)
[2019-02-22] MEDS: PIPERACILLIN/TAZOBACTAM 3.375 GM in SODIUM CHLORIDE 0.9% MINIBAG 100 ML IV SCH ×4 (03:56→22:25)
[2019-02-22] MEDS: SODIUM CHLORIDE FLUSH 0.9% 10 ML SYRINGE IVP PRN ×5 (03:57→20:40)
[2019-02-22 05:40] LABS: BASOPHILS # (AUTO) 0.1 10^3/uL (0.0-0.1); BASOPHILS % (AUTO) 0.5 %; EOSINOPHILS # (AUTO) 0.7 10^3/uL (0.0-0.7); EOSINOPHILS % (AUTO) 6.6 %; HGB - HEMOGLOBIN 11.1 g/dL (12.0-16.0); LYMPHOCYTES # (AUTO) 2.2 10^3/uL (1.5-3.5); LYMPHOCYTES % (AUTO) 19.8 %; MEAN CORPUSCULAR HGB CONC 32.7 g/dL (32.0-36.0); MEAN CORPUSCULAR VOLUME 88.5 fL (81.0-99.0); MEAN PLATELET VOLUME 11.6 fL (7.9-10.8); MONOCYTES % (AUTO) 9.1 %; NEUTROPHILS # (AUTO) 7.1 10^3/uL (1.5-6.6); NEUTROPHILS % (AUTO) 63.8 %; PLT - PLATELET COUNT 235 10^3/uL (130-450); RED BLOOD COUNT 3.83 10^6/uL (4.20-5.40); RED CELL DISTRIBUTION WIDTH 14.2 % (12.0-15.0); WHITE BLOOD COUNT 11.1 x10^3/uL (4.8-10.8)
[2019-02-22 05:57] LABS: ALBUMIN 2.8 g/dL (3.2-5.5); ALBUMIN/GLOBULIN RATIO 1.2 (1.0-2.2); ALKALINE PHOSPHATASE 57 IU/L (42-121); ALT ALANINE AMINOTRANSFERASE < 10 IU/L (10-60); AST ASPARTATE AMINOTRANSFERASE 12 IU/L (10-42); BILIRUBIN,TOTAL 0.5 mg/dL (0.2-1.0); BUN - BLOOD UREA NITROGEN 13 mg/dL (6-20); CALCIUM 8.6 mg/dL (8.5-10.3); CARBON DIOXIDE - CO2 28 mmol/L (21-32); CHLORIDE 105 mmol/L (101-111); CREATININE 0.5 mg/dL (0.4-1.0); GFR - MDRD 118 (>89); GLUCOSE 104 mg/dL (70-100); SODIUM 142 mmol/L (135-145); TOTAL PROTEIN 5.1 g/dL (6.7-8.2)
[2019-02-22] MEDS: ACETAMINOPHEN 1,000 MG/100 ML 100 ML IV PRN (06:00)
[2019-02-22] MEDS: PANTOPRAZOLE 40 MG VIAL IVP SCH (07:04)
[2019-02-22] MEDS: NICOTINE 7 MG PATCH TOP SCH (08:42)
[2019-02-22] MEDS: POLYETHYLENE GLYCOL 3350 17 GM PACKET PO SCH (08:42)
[2019-02-22] MEDS: ENOXAPARIN 40 MG/0.4 ML SYRINGE SUBQ SCH (08:43)
[2019-02-22] MEDS: ASPIRIN 300 MG SUPP PR SCH (08:43)
[2019-02-22] MEDS: NYSTATIN CREAM 15 GM TUBE TOP SCH ×2 (08:44→22:25)
[2019-02-22 11:23] LABS: MAGNESIUM 1.7 mg/dL (1.7-2.8); PHOSPHORUS 3.9 mg/dL (2.5-4.6)
--- NOTE | 2019-02-22 15:59 | PROVIDER PROGRESS NOTE ---
Subjective - Prog Note Date Prog Note Date: 02/22/19 - Subjective Pt reports feeling: Improved Subjective: pt report she feel better, she denies abdominal pain, and nausea or vomiting, fever, chill, or chest pain, shortness of breath. ST came to evaluate pt, pt is found to have slight improvement for dysphagia but PEG tube feeding, and aspiration precaution are still high recommended. pt is planed to transferred to inpt of rehab at [facility] on tomorrow. Current Medications - Current Medications Current Medications: Active Medications Acetaminophen (Tylenol) 650 mg PO Q4HR PRN PRN Reason: Pain 1 to 4 Albuterol () 2.5 mg INH RTQ4H PRN PRN Reason: Wheezing Albuterol/Ipratropium (Duoneb) 3 ml INH Q4HR PRN PRN Reason: Wheezing Aspirin () 300 mg SD DAILY [facility] Last Admin: 02/22/19 08:43 Dose: 300 mg Atorvastatin Calcium (Lipitor) 40 mg PO QPM [facility] Last Admin: 02/21/19 20:44 Dose: 40 mg Enoxaparin Sodium (Lovenox) 40 mg SUBQ DAILY [facility] Last Admin: 02/22/19 08:43 Dose: 40 mg Hydralazine HCl (Apresoline Inj) 10 mg IVP QID PRN PRN Reason: Hypertensive Emergency Acetaminophen (Ofirmev) 100 mls @ 400 mls/hr IV Q6HR PRN PRN Reason: PAIN Last Infusion: 02/22/19 06:15 Dose: Infused Piperacillin Sod/Tazobactam (Sod 3.375 gm/ Sodium Chloride) 100 mls @ 200 mls/hr IV Q6H [facility] Last Infusion: 02/22/19 12:10 Dose: Infused Morphine Sulfate (Morphine (Carpuject)) 2 mg IVP Q2HR PRN PRN Reason: PAIN Last Admin: 02/20/19 10:47 Dose: 2 mg Multi-Ingredient Ointment (Zinc Oxide) 1 applic TOP PRN PRN PRN Reason: Skin Care Last Admin: 02/21/19 09:20 Dose: 1 applic Nicotine (Nicoderm) 1 patch TOP DAILY [facility] Last Admin: 02/22/19 08:42 Dose: 1 patch Nystatin (Mycostatin Cream) 1 applic TOP BID [facility] Last Admin: 02/22/19 08:44 Dose: 1 applic Ondansetron HCl (Zofran Inj) 4 mg IVP Q6HR PRN PRN Reason: Nausea / Vomiting Last Admin: 02/21/19 09:18 Dose: 4 mg Ondansetron HCl (Zofran Odt) 4 mg TL Q6HR PRN PRN Reason: Nausea / Vomiting Pantoprazole Sodium (Protonix) 40 mg IVP QDAC [facility] Last Admin: 02/22/19 07:04 Dose: 40 mg Polyethylene Glycol (Miralax) 17 gm PO DAILY [facility] Last Admin: 02/22/19 08:42 Dose: 17 gm Sodium Chloride (Normal Saline Flush 0.9%) 10 ml IVP PRN PRN PRN Reason: NEEDED PER PROVIDER ORDERS Last Admin: 02/22/19 07:04 Dose: 10 ml Sodium Chloride (Normal Saline Flush 0.9%) 10 ml IVP 0100,0900,1700 [facility] Last Admin: 02/22/19 08:43 Dose: 10 ml Objective - Vital Signs/Intake & Output Vital Signs: Vital Signs x48h Temp Pulse Resp BP Pulse Ox 02/22/19 12:31 61 160/62 H 02/22/19 12:00 36.6 C 66 18 190/51 H 94 Intake & Output: Intake & Output 02/19/19 02/20/19 02/21/19 02/22/19 23:59 23:59 23:59 23:59 Intake Total 2978.333 6886.010 0914 2613 Output Total 550 350 535 403 Balance 2428.333 7005.674 6482 2210 - Objective General Appearance: positive: No acute distress, Alert. negative: Lethargic Eyes Bilateral: positive: Normal inspection, PERRL, No lid inflammation, Conjunctivae nml ENT: positive: ENT inspection nml, Pharynx nml, No signs of dehydration. negative: Purulent nasal drainage, Pharyngeal erythema, Oral lesions Neck: positive: Nml inspection, Thyroid nml, No JVD, Trachea midline. negative: Thyromegaly, Lymphadenopathy (R), Lymphadenopathy (L), Stiff neck, Swelling/bruising, Tracheal deviation Respiratory: positive: Chest non-tender, No respiratory distress. negative: Wheezes, Rales, Rhonchi Cardiovascular: positive: Regular rate & rhythm, No murmur, No gallop. negative: Irregularly irregular, Extrasystoles, Tachycardia, Bradycardia, JVD present, Systolic murmur, Diastolic murmur Peripheral Pulses: 2+ Radial (R), 2+ Radial (L), 2+ Dorsalis pedis (R), 2+ Dorsalis pedis (L) Abdomen: positive: Non-tender, No organomegaly, Nml bowel sounds, No distention. negative: Tenderness, Guarding, Rebound Back: positive: Nml inspection. negative: CVA tenderness (R), CVA tenderness (L) Skin: positive: Color nml, No rash, Warm, Dry. negative: Cyanosis, Diaphoresis, Pallor Extremities: positive: Non-tender, Nml appearance. negative: Calf tenderness, Joint swelling, Donald's sign/cords Neurologic/Psychiatric: positive: Oriented x3, Weakness, Sensory loss, Facial droop, Slurred/abnml speech. negative: Depressed mood/affect - Lab Results Fish Bones: 02/22/19 05:32 02/22/19 05:32 Other Labs: Lab Results x24hrs 02/22/19 02/22/19 02/22/19 Range/Units 05:32 05:32 05:32 WBC 11.1 H (4.8-10.8) x10^3/uL RBC 3.83 L (4.20-5.40) 10^6/uL Hgb 11.1 L (12.0-16.0) g/dL Hct 33.9 L (37.0-47.0) % MCV 88.5 (81.0-99.0) fL MCH 29.0 (27.0-31.0) pg MCHC 32.7 (32.0-36.0) g/dL RDW 14.2 (12.0-15.0) % Plt Count 235 (130-450) 10^3/uL MPV 11.6 H (7.9-10.8) fL Neut # (Auto) 7.1 H (1.5-6.6) 10^3/uL Lymph # (Auto) 2.2 (1.5-3.5) 10^3/uL Weld # (Auto) 1.0 (0.0-1.0) 10^3/uL Eos # (Auto) 0.7 (0.0-0.7) 10^3/uL Baso # (Auto) 0.1 (0.0-0.1) 10^3/uL Absolute Nucleated RBC 0.00 x10^3/uL Nucleated RBC % 0.0 /100WBC Sodium 142 (135-145) mmol/L Potassium 3.9 (3.5-5.0) mmol/L Chloride 105 (101-111) mmol/L Carbon Dioxide 28 (21-32) mmol/L Anion Gap 9.0 (6-13) BUN 13 (6-20) mg/dL Creatinine 0.5 (0.4-1.0) mg/dL Estimated GFR (MDRD) 118 (>89) Glucose 104 H (70-100) mg/dL Calcium 8.6 (8.5-10.3) mg/dL Phosphorus 3.9 (2.5-4.6) mg/dL Magnesium 1.7 (1.7-2.8) mg/dL Total Bilirubin 0.5 (0.2-1.0) mg/dL AST 12 (10-42) IU/L ALT < 10 L (10-60) IU/L Alkaline Phosphatase 57 (42-121) IU/L Total Protein 5.1 L (6.7-8.2) g/dL Albumin 2.8 L (3.2-5.5) g/dL Globulin 2.3 (2.1-4.2) g/dL Albumin/Globulin Ratio 1.2 (1.0-2.2) ABX Reporting Has patient been on IV antibiotics over the past 48 hours?: Yes Sepsis Event Note (H) - Evaluation Current Stage of Sepsis: Sepsis Possible source of Sepsis: positive: Pulmonary, GI tract/intra-abdominal - Sepsis Criteria Sepsis Criteria: Recorded Temperature greater than 38.3C or Less than 36C, WBC count greater than 12,000 or less than 4000 Assessment/Plan - Problem List (1) Cerebrovascular accident (CVA) Impression: 02/22 pt was accepted by [facility] for inpt rehab. They can not take pt until tomorrow. 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 pt is status post of PEG, done on yesterday. Per surgeon recommended pt can start PEG feeding today. consulted with dietitian, will followup her recommend for PEG feeding. pt complain of abdominal pain, will have CT of abdomen, and will start PEG feed after review of CT of abdomen. continue PT/OT advise pt's DPOA for pt to followup vascular surgeon for carotid stenosis Aspiration precaution continue Aspirin and statin pt still present profound left side weakness, with left facial droop, dysphagia. CTA of neck reveals significant carotid stenosis. Due to pt has significant oral secretion, and pt's dysphagia, pt had cough when she was flat. MRI was hold for prevention of aspiration. CTA reveals possible cause, clinically pt present Stroke and left side profound weakness with left facial droop, dysphagia, and slurred speech which is improving. continue Aspirin SP, will hasve statin after pt has PEG continue PT/OT. Pt failed ST evaluation and treatment third time, surgeon was called for PEG, pt's DPOA decline to have NG tube. ECHO reveals unremarkable. advise pt's DPOA for pt to followup vascular surgeon for carotid stenosis Aspiration precaution consult with video game creator for PEG feed (2) lymphocytosis 02/22 today her WBC is 11.1. pt has slight elevated WBC at her hx. pt denies abdominal pain, no fever/chill. pt report she feel better blood culture is negative for bacteremia continue Zosyn 02/21 significant improved lymphocytosis, today WBC is 11.9 from yesterday 22.3. pt report her abdominal pain is controlled. Unclear the etiology continue Zosyn now, blood culture is negative for bacteremia preliminary 02/20 pt's WBC is increased to 22 from 10, and temperature increase to 37.6. pt report warm and felt not good. she report abdominal pain at left upper abdomen. pt was status post PEG tube on yesterday. CT of abdomen, will followup blood culture start with Zosyn continue IVF, and pain control (3) abdominal pain 02/22 resolved 02/21 improved and stable. pt report her abdominal pain is controlled pt complain of some nausea but without vomiting, unknown etiology, possible pt has a few days without any oral intake, now begin tube feeding. start on protonix Zofran PRN 02/20 she report abdominal pain at left upper abdomen. pt was status post PEG tube on yesterday. pt denies N/N CT of abdomen, will followup pain control (4) tube feed due to dysphagia 02/[address] re-evaluate pt, and still recommend continue Tube feed, NPO. continue tube feed, followup dietitian consult 02/21 pt appeared tolerate the tube feeding, followup surgeon and dietitian recommendation, continue PEG feeding 02/20 will start PEG food after CT of abdomen. consulted with GI surgeon and dietitian for PEG feeding pt still present significant dysphagia. ST reveals pt for three times but pt is not improved yet. consult with surgeon. pt's DPOA decline NG tube for pt consult with video game creator continue NPO continue D5 1/2 NS with 40 meq K continue Aspiration precaution (5) Carotid stenosis, bilateral Conclusion/Plan: CTA of neck reveals severe stenosis >70% bilaterally Pt's DPOA was advised for pt to have outpatient vascular surgeon consult Started ASA as per neurology recs (6) DNR (do not resuscitate) Conclusion/Plan: Patient request DNR (7) Tobacco use Conclusion/Plan: pt is currently smoking tobacco nowl. low dose nicoderm was ordered for pt to avoid nicotine withdrawal PRN bronchodilator (8) Hypertension Conclusion/Plan: pt is Permissive HTN next 48-96 hrs and even giving fluid this pm Reported as outpatient Dx, not on meds continue vital monitor add PRN hydralazine for HTN (9) Hypoglycemia resolved now. continue D5 1/2 NS until pt has PEG feed Qualifiers: CVA mechanism: unspecified Qualified Code(s): I63.9 - Cerebral infarction, unspecified
[2019-02-22] MEDS: MORPHINE 2 MG/ML CARPUJECT IVP PRN ×2 (17:01→20:40)
[2019-02-22] MEDS: ATORVASTATIN 40 MG TABLET PO SCH (22:24)
[2019-02-23] MEDS: SODIUM CHLORIDE FLUSH 0.9% 10 ML SYRINGE IVP PRN ×2 (00:23→06:22)
[2019-02-23] MEDS ORDERED: SODIUM CHLORIDE 0.9% 500 ML IV PRN (02:49)
[2019-02-23] MEDS: PIPERACILLIN/TAZOBACTAM 3.375 GM in SODIUM CHLORIDE 0.9% MINIBAG 100 ML IV SCH ×2 (04:02→10:14)
[2019-02-23 06:07] LABS: BASOPHILS # (AUTO) 0.1 10^3/uL (0.0-0.1); BASOPHILS % (AUTO) 0.5 %; EOSINOPHILS % (AUTO) 8.8 %; HGB - HEMOGLOBIN 11.1 g/dL (12.0-16.0); LYMPHOCYTES # (AUTO) 1.6 10^3/uL (1.5-3.5); LYMPHOCYTES % (AUTO) 15.2 %; MEAN CORPUSCULAR HEMOGLOBIN 28.8 pg (27.0-31.0); MEAN CORPUSCULAR VOLUME 90.1 fL (81.0-99.0); MEAN PLATELET VOLUME 12.5 fL (7.9-10.8); MONOCYTES % (AUTO) 9.5 %; NEUTROPHILS # (AUTO) 7.1 10^3/uL (1.5-6.6); NEUTROPHILS % (AUTO) 65.7 %; PLT - PLATELET COUNT 259 10^3/uL (130-450); RED BLOOD COUNT 3.85 10^6/uL (4.20-5.40); RED CELL DISTRIBUTION WIDTH 14.1 % (12.0-15.0); WHITE BLOOD COUNT 10.8 x10^3/uL (4.8-10.8)
[2019-02-23 06:22] LABS: ALBUMIN 2.6 g/dL (3.2-5.5); ALKALINE PHOSPHATASE 64 IU/L (42-121); ALT ALANINE AMINOTRANSFERASE < 10 IU/L (10-60); AST ASPARTATE AMINOTRANSFERASE 14 IU/L (10-42); BILIRUBIN,TOTAL 0.6 mg/dL (0.2-1.0); BUN - BLOOD UREA NITROGEN 15 mg/dL (6-20); CALCIUM 8.3 mg/dL (8.5-10.3); CARBON DIOXIDE - CO2 28 mmol/L (21-32); CHLORIDE 102 mmol/L (101-111); CREATININE 0.5 mg/dL (0.4-1.0); GFR - MDRD 118 (>89); GLUCOSE 162 mg/dL (70-100); SODIUM 139 mmol/L (135-145); TOTAL PROTEIN 5.2 g/dL (6.7-8.2)
[2019-02-23] MEDS: PANTOPRAZOLE 40 MG VIAL IVP SCH (06:22)
[2019-02-23 08:19] VITALS: BP 155/89
[2019-02-23] MEDS ORDERED: ASPIRIN CHEW 81 MG TABLET PEG SCH (09:00)
[2019-02-23] MEDS: ENOXAPARIN 40 MG/0.4 ML SYRINGE SUBQ SCH (09:09)
[2019-02-23] MEDS: NICOTINE 7 MG PATCH TOP SCH (09:09)
[2019-02-23] MEDS: NYSTATIN CREAM 15 GM TUBE TOP SCH (09:11)
[2019-02-23] MEDS: SODIUM CHLORIDE FLUSH 0.9% 10 ML SYRINGE IVP SCH (09:11)
[2019-02-23] MEDS: POLYETHYLENE GLYCOL 3350 17 GM PACKET PO SCH (09:15)
--- NOTE | 2019-02-23 10:37 | Discharge Plan ---
"Discharge Plan for SNF / EPI - Discharge Plan And Transition Orders Problem Reviewed?: Yes Disposition: 02 Transfer Acute Care Hosp Condition: Serious Allergies and Adverse Reactions: Allergies Allergy/AdvReac Type Severity Reaction Status Date / Time No Known Drug Allergies Allergy Verified 02/17/19 13:55 Health Concerns: stroke/left side paralyzed, dysphagia with PEG tube, Aspiration precaution, carotid stenosis, lymphocytosis Plan of Treatment: pt had stroke with left side paralyzed. pt is prescribed Aspirin and Lipitor, advise continue PT/OT/ST inpt rehab Pt had dysphagia, can not swallow. Pt had PEG tube. Pt tolerate PEG feed. advise PEG tube feed, continue ST evaluation as needed pt had severe aspiration and significant oral secretion, pt can not have MRI of brain done. Aspiration precaution, NPO now. pt had 70%-75% carotid stenosis bilaterally. Discussed with pt's DPOA and pt for this medical issue. Advise pt followup vascular surgeon. DPOA state he will let pt followup. pt developed significant lymphocytosis and elevated temperature. pt was treated with antibiotics, then her WBC developed into normal, no fever, and blood culture was negative for bacteremia. pt is prescribed antibiotics to finish the treatment course. Care Goals: stabilization of pt Assessment: assessment as the above - SNF / EPI Transition Orders Admit to (Facility): [facility] rehab Under the care of (Name): Health Provider of [facility] rehab Discharge Diagnosis: stroke, dysphagia with Tube feed, Carotid stenosis, HTN, Current Cigarette smoker Medicare Certification Statement: I certify that Post Hospital nursing home care is medically necessary on a continuing basis for any of the conditions for which she/he is receiving care during hospitalization. Notify PCP of admission and forward orders to primary provider for signature. Weight on admission and: Daily Call PCP immediately if weight increases by: 2 kg Other Notification Orders: Call PCP immediately if patient develops dyspnea, chest pain/tightness or edema. House Bowel Program: Yes Additional Bowel Program Orders: If no BM after 2 days, nurse may give M.O.M. 30ml PO PRN and/or ducolax Supp 1 MO and/or JIMBO 250mg P.O., and/or senna 1-2 tabs PO. On day 3 nurse may give repeat above order until residents constipation is resolved. Annual Influenza Vaccine (between Mar 28 and October 25): Yes Two-step PPD per [facility] [phone] or approved exception documents: Yes Treatments & Other Orders: Pt may followup health provider when she is arrival at the hospital, may continue PT/OT/ST, followup vascular surgeon, continue tube feed as needed Medication Orders: PLEASE REFER TO THE DISCHARGE MEDICATION LIST. Insulin Orders?: No - Medications New Prescriptions: Amox/Clav 500/125 [Augmentin] 1 each PO Q12H #10 tablet Aspirin 325 mg PO DAILY #10 tablet Atorvastatin [Lipitor] 80 mg PO QPM #10 tablet - Diet Type: Tube feeding - Therapies | Activity Therapy: Evaluation | Treat if indicated: Speech, PT, OT, Swallowing / ST Rehabilitation Potential: Maximize functional status Activity: Activity as Tolerated Additional Instructions: Pt may followup health provider when she is arrival at the hospital, may continue PT/OT/ST, may followup vascular surgeon, may continue tube feed as needed"
--- NOTE | 2019-02-23 11:11 | DISCHARGE SUMMARY ---
Discharge Summary Discharge Date: 02/23/19 Discharging Provider: SELLERS Primary Care Provider: Marianela Sanabria Code Status: Do Not Attempt Resuscitation Condition at Discharge: Serious Discharge Disposition: 02 Transfer Acute Care Hosp Discharge Facility Name: [facility] rehab - DIAGNOSES Admission Diagnoses: (1) Stroke (2) Carotid stenosis, bilateral (3) DNR (do not resuscitate) (4) Tobacco use (5) Hypertension Discharge Diagnoses with Status of Each Condition: (1) Cerebrovascular accident (CVA) stable and improved. (2) lymphocytosis resolved, WBC is normal now (3) abdominal pain resolved (4) tube feed due to dysphagia stable (5) Carotid stenosis, bilateral stable (6) DNR (do not resuscitate) Patient request DNR (7) Tobacco use resolved (8) Hypertension stable (9) Hypoglycemia resolved - HPI History of Present Illness: refer from Ms. De La Cruz's HPI on 02/17/19 83 yo female who lives alone but has a visiting web operations lead BJ who is a friend of her daughters only as of early this week. Manager Order heard patient fall in bathroom ~ 5am this morning and found her on the floor. (Patient reports she fell twice, but cant elaborate when the other time was; BJ not present. ) Patient does not recall details, but sustained injuries to L arm andL ankle. On evaluation in the ED L sided weakness was noted. On neuro exam rin the ED in addition to the L sided weakness she was alert, with normal speech noted on iniitail GCS scoring in ED, but dysarthira mild to mod noted on the exam. , although she was not entirely oriented to time/date/. There was a facial drrop, no pronator drift, 3/5 weakness on the LUE and LLE, no asphasia, . Imaging in the ED (initial so far as CT) showed old lacunar infarcts but no acute stroke (at this time). MRI not yet done. EKG ; NSR wit short Pr, PACs and diffusely flat T waves with no comparison EKG available RE stroke risk factors, Patient is heavy smoker + HTN, neg DM , no note of prior hyperlipidemia; not on statin VS on presentaton afeb, HR 91, 183/67 RR 19 96-97% RA Dr Gale spoke with Dr Denton at [facility] stroke; and as the timing of the acute event is very unclear; was not TPA candidate. CTA of head and neck showed significant carotid stenosis (although no intracranial stenosis) ; most significantly severe R proximal cervical atheroscerosis. Dr Denton (per Gus note) indicated carotid does need to be addressed w/ vascular surgery but NOT acutely as stroke is complete . Advised starting ASA and routien post stroke care, with vascular surgeon follow up. Re fall at home; Xrays of left clavicle, humerus, forearm, ankle and hip all negative for acute orthopedic injury - HOSPITAL COURSE Hospital Course: 1) Cerebrovascular accident (CVA) stable and improved. left side paralyzed with dysphagia and slow/slurred speech. D/C to [facility] in rehab continue care pt is prescribed Aspirin and Lipitor pt had no MRI of brain done because of her significant oral secretion, high risk of aspiration pneumonia when she was in the flat position to do MRI (2) lymphocytosis resolved, WBC is normal now etiology is unclear. Blood culture, UA and CXR (consolidation in right lung seems from right liver hernia per CT of abdomen) are unremarkable. Temperature is normal pt is prescribed antibiotics Augmentin to finish the treatment course (3) abdominal pain resolved (4) tube feed due to dysphagia stable advise continue tube feed, and ST's evaluation (5) Carotid stenosis, bilateral stable CTA of neck reveals severe stenosis >70% bilaterally. Pt's DPOA was advised for pt to have outpatient vascular surgeon consult. (6) DNR (do not resuscitate) Patient request DNR (7) Tobacco use resolved pt state she quit now, no more tobacco smoking (8) Hypertension stable (9) Hypoglycemia resolved - ALLERGIES Allergies/Adverse Reactions: Allergies Allergy/AdvReac Type Severity Reaction Status Date / Time No Known Drug Allergies Allergy Verified 02/17/19 13:55 - MEDICATIONS Home Medications: Ambulatory Orders Medication Instructions Recorded Confirmed Albuterol Sulfate [Proventil Hfa 1 - 2 puffs IH Q4H PRN #1 12/24/17 02/18/19 Inhaler] [email or web address] Amox/Clav 500/125 [Augmentin] 1 each PO Q12H #10 tablet 02/23/19 Aspirin 325 mg PO DAILY #10 tablet 02/23/19 Atorvastatin [Lipitor] 80 mg PO QPM #10 tablet 02/23/19 - PHYSICAL EXAM AT DISCHARGE General Appearance: positive: No acute distress, Alert. negative: Lethargic Eyes Bilateral: positive: Normal inspection, PERRL, No lid inflammation, Conjunctivae nml ENT: positive: ENT inspection nml, Pharynx nml, No signs of dehydration. negative: Purulent nasal drainage, Pharyngeal erythema, Oral lesions Neck: positive: Nml inspection, Thyroid nml, No JVD, Trachea midline. negative: Thyromegaly, Lymphadenopathy (R), Lymphadenopathy (L), Stiff neck, Swell ing/bruising, Tracheal deviation Respiratory: positive: Chest non-tender, No respiratory distress, Breath sounds nml. negative: Wheezes, Rales, Rhonchi Cardiovascular: positive: Regular rate & rhythm, No murmur, No gallop. negative: Irregularly irregular, Extrasystoles, Tachycardia, Bradycardia, JVD present, Systolic murmur, Diastolic murmur Peripheral Pulses: positive: 2+ Abdomen: positive: Non-tender, No organomegaly, Nml bowel sounds, No distention. negative: Tenderness, Guarding, Rebound Back: positive: Nml inspection. negative: CVA tenderness (R), CVA tenderness (L) Skin: positive: Color nml, No rash, Warm, Dry. negative: Cyanosis, Diaphoresis, Pallor Extremities: positive: Non-tender, Nml appearance. negative: Full ROM, Calf tenderness, Joint swelling, Donald's sign/cords Neurologic/Psychiatric: positive: Oriented x3, Mood/affect nml, Weakness, Sensory loss, Facial droop, Slurred/abnml speech. negative: Motor nml, Sensation nml, Depressed mood/affect - LABS Result Diagrams: 02/23/19 05:28 02/23/19 05:28 - DIAGNOSTIC IMAGING Diagnostic Imaging Results: See rad report - SEPSIS Sepsis Criteria: WBC count greater than 12,000 or less than 4000 - FOLLOW UP Follow Up: pt had stroke with left side paralyzed. pt is prescribed Aspirin and Lipitor, advise continue PT/OT/ST inpt rehab Pt had dysphagia, can not swallow. Pt had PEG tube. Pt tolerate PEG feed. advise PEG tube feed, continue ST evaluation as needed pt had severe aspiration and significant oral secretion, pt can not have MRI of brain done. Aspiration precaution, NPO now. pt had 70%-75% carotid stenosis bilaterally. Discussed with pt's DPOA and pt for this medical issue. Advise pt followup vascular surgeon. DPOA state he will let pt followup. pt developed significant lymphocytosis and elevated temperature. pt was treated with antibiotics, then her WBC developed into normal, no fever, and blood culture was negative for bacteremia. pt is prescribed antibiotics to finish the treatment course. Pt may followup health provider when she is arrival at the hospital, may continue PT/OT/ST, may followup vascular surgeon, may continue tube feed as nee ded - TIME SPENT Time Spent in Discharge (Minutes): 60
== END 2019-02-23 12:31 | DRG 65 ==
LOC: EDBD → EDUNIT# → ED 13:47 → MS2 16:41 → EEVIPCON 16:41
PROVIDERS: ADMIT Nurse Practitioner; ATTEND Nurse Practitioner Gerontology
PROC: 3E0G76Z Introduction of Nutritional Substance into Upper GI, Via Natural or Artificial Opening (ICD-10-PCS; 2019-02-19)
PROC: 0DB98ZX Excision of Duodenum, Via Natural or Artificial Opening Endoscopic, Diagnostic (ICD-10-PCS; 2019-02-19)
PROC: 0DB68ZX Excision of Stomach, Via Natural or Artificial Opening Endoscopic, Diagnostic (ICD-10-PCS; 2019-02-19)
PROC: 0DH63UZ Insertion of Feeding Device into Stomach, Percutaneous Approach (ICD-10-PCS; principal; 2019-02-19 16:00)
DX: I63.9 Cerebral infarction, unspecified (principal); I63.233 Cerebral infarction due to unspecified occlusion or stenosis of bilateral carotid arteries; G81.04 Flaccid hemiplegia affecting left nondominant side; T14.8XXA Other injury of unspecified body region, initial encounter; I10 Essential (primary) hypertension; R29.708 NIHSS score 8; R40.2412 Glasgow coma scale score 13-15, at arrival to emergency department; I65.23 Occlusion and stenosis of bilateral carotid arteries; I67.2 Cerebral atherosclerosis; I49.1 Atrial premature depolarization; R13.11 Dysphagia, oral phase; F17.200 Nicotine dependence, unspecified, uncomplicated; E16.2 Hypoglycemia, unspecified; R47.1 Dysarthria and anarthria; R47.81 Slurred speech; R29.810 Facial weakness; S49.92XA Unspecified injury of left shoulder and upper arm, initial encounter; S99.912A Unspecified injury of left ankle, initial encounter; W18.30XA Fall on same level, unspecified, initial encounter; Y92.002 Bathroom of unspecified non-institutional (private) residence as the place of occurrence of the external cause; D72.820 Lymphocytosis (symptomatic); R50.82 Postprocedural fever; R10.12 Left upper quadrant pain; R11.0 Nausea; K29.80 Duodenitis without bleeding; K29.70 Gastritis, unspecified, without bleeding; F17.210 Nicotine dependence, cigarettes, uncomplicated; K08.109 Complete loss of teeth, unspecified cause, unspecified class; H91.90 Unspecified hearing loss, unspecified ear; Z66 Do not resuscitate; Z91.81 History of falling; Z93.3 Colostomy status
CPT/HCPCS: 36415; 70496; 70498; 71045; 73000; 73060; 73090; 73502; 73610; 74177; 80048; 80053; 80061; 81001; 83605; 83690; 83735; 84100; 84134; 84484; 85025; 85027; 85610; 87040; 92526; 92610; 93005; 93306; 97110; 97112; 97162; 97166; 97530; 99285; A9270; J0131; J1650; J7120; Q9967; 83721; 87086